=== PATIENT | male | born 1940 | race Caucasian/White ===

== ENCOUNTER 2017-11-25 20:02 | Inpatient (IN) | payer OTHER, MEDICARE ==
[~2017-11-25] VITALS: Ht 175.3 cm; Wt 102.1 kg
[2017-11-25] MEDS ORDERED: IOHEXOL 350 MG/ML 10 ML VIAL (for RAD DIAG) IVCONTRAST ONE (20:03)
[2017-11-25] MEDS ORDERED: DIPHTH/TETANUS/ACEL PERTUSSIS (BOOSTER) 0.5 ML VIAL/PFS IM ONE (20:06)
[2017-11-25] MEDS ORDERED: ceFAZolin 2 GM PREMIX 50 ML ONE (20:06)
[2017-11-25 20:25] LABS: BASOPHIL # 0.1 TH/MM3 (0-0.2); BASOPHIL % 0.4 % (0.0-2.0); EOSINOPHIL # 0.1 TH/MM3 (0-0.4); HEMATOCRIT 35.8 % (39.0-51.0); HEMOGLOBIN 11.9 GM/DL (13.0-17.0); LYMPH % 15.1 % (9.0-44.0); LYMPHOCYTE # 2.1 TH/MM3 (1.0-4.8); MEAN CELL VOLUME 83.6 FL (80.0-100.0); MEAN CORPUSCULAR HEMOGLOBIN 27.9 PG (27.0-34.0); MEAN CORPUSCULAR HGB CONC 33.3 % (32.0-36.0); MEAN PLATELET VOLUME 8.7 FL (7.0-11.0); MONO % 3.9 % (0.0-8.0); MONOCYTE # 0.5 TH/MM3 (0-0.9); NEUT % 79.6 % (16.0-70.0); PLATELET COUNT 221 TH/MM3 (150-450); RED BLOOD COUNT 4.29 MIL/MM3 (4.50-5.90); RED CELL DISTRIBUTION WIDTH 14.1 % (11.6-17.2); WHITE BLOOD COUNT 13.9 TH/MM3 (4.0-11.0)
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
[2017-11-25] MEDS ORDERED: fentaNYL CITRATE 250 MCG/5 ML AMP ONE ×2 (20:58→21:09)
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
[2017-11-25] MEDS ORDERED: ETOMIDATE 40 MG/20 ML VIAL ONE (21:06)
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
[2017-11-25 21:13] VITALS: O2SAT 100; O2SAT 96
[2017-11-25 21:13] LABS: INTERNATIONAL NORMALIZED RATIO 1.1 RATIO; PROTHROMBIN TIME - PATIENT 11.2 SEC (9.8-11.6)
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
[2017-11-25] MEDS ORDERED: PROPOFOL 1000 MG/100 ML INJ 100 ML ONE (21:21)
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
[2017-11-25 22:10] LABS: BACTERIA, URINE RARE /hpf; BILIRUBIN, URINE NEG (NEG); BLOOD, URINE MOD (NEG); GLUCOSE,URINE NEG (NEG); KETONE, URINE NEG (NEG); MUCUS URINE FEW /lpf (OCC); NITRITE,URINE NEG (NEG); SQUAMOUS EPITHELIAL CELL URINE <1 /hpf (0-5); URINE COLOR YELLOW (YELLW/STRAW); URINE LEUKOCYTE ESTERASE NEG (NEG)
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
--- NOTE | 2017-11-25 22:13 | RADRPT ---
EXAM DATE/TIME: 11/25/2017 21:40 [facility] COMPARISON: CHEST SINGLE AP, November 25, 2017, 20:03. INDICATIONS : Post endotracheal tube placement. MEDICAL HISTORY : Non-responsive SURGICAL HISTORY : Non-responsive ENCOUNTER: Subsequent ACUITY: 1 day PAIN SCORE: Non-responsive. LOCATION: Bilateral chest FINDINGS: ET tube tip well above the memo. Left subclavian catheter tip projects over the mid superior vena cava. Gastric tube tip and side-port project within the stomach. Multiple right rib fractures. Ill -defined airspace opacity in the lateral right midlung may represent pulmonary contusion. No evidenc e of pneumothorax on this supine film. CONCLUSION: Lines and tubes in good position. Ill-defined opacity upper outer right lung may represent pulmonary contusion. Kodak Mark MD on November 25, 2017 at 22:10 Board Certified Radiologist. This report was verified electronically.
[2017-11-25] MEDS ORDERED: VASOPRESSIN 20 UNITS/ML VIAL ONE (22:18)
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
[2017-11-25] MEDS ORDERED: SODIUM CHLORIDE 0.9% FLUSH 10 ML FLUSH IV FLUSH PRN (23:00)
[2017-11-25] MEDS ORDERED: ONDANSETRON HCL 4 MG/2 ML VIAL IV PUSH PRN (23:00)
[2017-11-25] MEDS ORDERED: Post-op Orders (for Pharmacy) XX ONE (23:00)
[2017-11-25] MEDS ORDERED: NALOXONE HCL 0.4 MG/ML AMP IV PUSH PRN (23:00)
[2017-11-25] MEDS ORDERED: SODIUM CHLOR 0.9% 250 ML INJ 250 ML ONE (23:05)
[2017-11-25] MEDS ORDERED: PHENYLEPHRINE HCL 10 MG/ML VIAL ONE (23:06)
--- NOTE | 2017-11-25 23:26 | PD.RAD ---
Post Procedure Progress Note Pre Procedure Diagnosis: (1) Renal hemorrhage, right (2) Trauma Post Procedure Diagnosis: (1) Renal hemorrhage, right (2) Trauma Procedure Date: Nov 25, 2017 Supervising Radiologist: Kodak Green JR Proceduralist/Assist: Cherelle Alexander, RT(R)(CV), Shantel Zimmerman, RT(R) Anesthesia: Other Plan of Activity Patient to Unit: Critical Care Patient Condition: Critical See PACS Report for procedural detail/treatment Vascular-Arterial Procedure Procedure 1 Procedure Site: Bilateral Renal Procedure(s): Angiogram, Embolization Access Access Site(s): Left Femoral Artery Findings: Selective right renal angio shows severe laceration to right kidney with active hemorrhage. The extent of the trauma to the kidney necessitated embolization of the entire kidney. No further hemorrhage seen. Selective left renal angio shows no active bleeding. No embolization performed on the left. Plan To ICU. Jr. Peter,Kodak Parks MD Nov 25, 2017 23:26
[2017-11-25] MEDS ORDERED: IODIXANOL 320 MG/ML 50 ML VIAL (for RAD SPEC) I-ARTERIAL ONE (23:28)
[2017-11-25] MEDS ORDERED: GELATIN 12 MM/7 MM FOAM I-ARTERIAL ONE (23:28)
[2017-11-26] VITALS (27 sets, daily range): BP systolic 95–138; BP diastolic 54–80; PULSE 60–104; RESP 12–22; TEMP 97–98.4; O2SAT 94–100
[2017-11-26] MEDS: SODIUM CHLOR 0.9% 1000 ML INJ 1,000 ML IV SCH ×5 (00:43→19:00)
[2017-11-26 01:01] LABS: HEMATOCRIT 31.5 % (39.0-51.0); HEMOGLOBIN 10.4 GM/DL (13.0-17.0)
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
[2017-11-26] MEDS ORDERED: CHLORHEXIDINE GLUCONATE 2 % 1 PACK (2 CLOTHS) TOP PRN (01:15)
[2017-11-26] MEDS ORDERED: GLUCAGON 1 MG/ML VIAL OTHER PRN (01:15)
[2017-11-26] MEDS ORDERED: MAGNESIUM HYDROXIDE SUSP 30 ML CUP PO PRN (01:15)
[2017-11-26] MEDS ORDERED: LACTULOSE SYRUP 20 GM/30 ML CUP PO PRN (01:15)
[2017-11-26] MEDS ORDERED: MISCELLANEOUS NURSING INFORMATION XX SCH (01:15)
[2017-11-26] MEDS ORDERED: BISACODYL 10 MG SUPP RECTAL PRN (01:15)
[2017-11-26] MEDS ORDERED: SENNOSIDES 8.6 MG TAB PO PRN (01:15)
[2017-11-26] MEDS ORDERED: DEXTROSE 50% IN WATER 50 ML VIAL(D50) IV PUSH PRN (01:15)
[2017-11-26] MEDS: CHLORHEXIDINE GLUCONATE 2 % 1 PACK (2 CLOTHS) TOP SCH (02:08)
[2017-11-26] MEDS ORDERED: fentaNYL 2,500 MCG/NS 250 ML IV PRN (03:00)
[2017-11-26] MEDS: RESP: ALBUTEROL 2.5 MG/IPRATROPIUM 0.5 MG NEB (SCH) INH ×4 (03:07→20:57)
[2017-11-26] MEDS: PANTOPRAZOLE SODIUM 40 MG VIAL IV PUSH SCH ×2 (03:22→22:25)
[2017-11-26] MEDS: PROPOFOL 1000 MG/100 ML IV PRN (03:27)
[2017-11-26] MEDS ORDERED: SODIUM CHLOR 0.9% 1000 ML INJ 1,000 ML IV ONE (04:00)
[2017-11-26] MEDS ORDERED: MIDAZOLAM 100 MG/100 ML INJ 100 ML IV PRN (04:00)
[2017-11-26 05:03] LABS: AUTOMATED NEUTROPHIL # 11.5 TH/MM3 (1.8-7.7); BASOPHIL % 0.1 % (0.0-2.0); EOSINOPHIL % 0.1 % (0.0-4.0); HEMATOCRIT 24.3 % (39.0-51.0); HEMOGLOBIN 8.2 GM/DL (13.0-17.0); LYMPH % 3.7 % (9.0-44.0); LYMPHOCYTE # 0.5 TH/MM3 (1.0-4.8); MEAN CELL VOLUME 82.9 FL (80.0-100.0); MEAN CORPUSCULAR HGB CONC 33.7 % (32.0-36.0); MEAN PLATELET VOLUME 8.4 FL (7.0-11.0); MONO % 9.1 % (0.0-8.0); MONOCYTE # 1.2 TH/MM3 (0-0.9); PLATELET COUNT 106 TH/MM3 (150-450); RED BLOOD COUNT 2.93 MIL/MM3 (4.50-5.90); WHITE BLOOD COUNT 13.3 TH/MM3 (4.0-11.0)
[2017-11-26 05:09] LABS: INTERNATIONAL NORMALIZED RATIO 1.2 RATIO; PROTHROMBIN TIME - PATIENT 12.2 SEC (9.8-11.6)
[2017-11-26 05:49] LABS: BICARBONATE 22.7 MEQ/L (21.0-32.0); CALCIUM 6.3 MG/DL (8.5-10.1); CREATININE 1.58 MG/DL (0.60-1.30)
[2017-11-26] MEDS: INSULIN NovoLIN REGULAR SUPPLEMENTAL SCALE SQ SCH ×3 (06:00→18:00)
[2017-11-26 06:04] LABS: CALCIUM-PROTEIN CORRECTED 7.8 MG/DL (8.5-10.1); TOTAL PROTEIN 4.2 GM/DL (6.4-8.2)
--- NOTE | 2017-11-26 06:31 | RADRPT ---
EXAM DATE/TIME: 11/26/2017 04:50 [facility] COMPARISON: CHEST SINGLE AP, November 25, 2017, 21:40. INDICATIONS : Shortness of breath. MEDICAL HISTORY : Unobtainable. SURGICAL HISTORY : Unobtainable. ENCOUNTER: Subsequent ACUITY: 2 days PAIN SCORE: Non-responsive. LOCATION: Bilateral chest FINDINGS: Portable AP view of the chest demonstrates a normal-sized cardiac silhouette. Endotracheal tube and n asogastric tube remain present. Left subclavian central line tip is in the SVC. There is new opacity in the right upper lung zone with elevation of the minor fissure. Hazy opacity is present in the mid and lower lung zones bilaterally. No pneumothorax is seen. CONCLUSION: 1. Partial collapse of the right upper lobe. Since the patient is intubated, mucous plug is the top c onsideration. 2. Interstitial opacities bilaterally in a pattern which could represent pulmonary edema. There are p otentially small pleural effusions bilaterally. Danny Ferreira MD on November 26, 2017 at 6:28 Board Certified Radiologist. This report was verified electronically.
[2017-11-26] MEDS: SODIUM CHLORIDE 0.9% FLUSH 10 ML FLUSH IV FLUSH SCH ×2 (09:00→22:26)
[2017-11-26] MEDS: ARTIFICIAL TEARS OPTH SOLN 15 ML BTL EACH EYE SCH ×3 (09:00→18:00)
[2017-11-26] MEDS: DOCUSATE SODIUM 50 MG/SENNA 8.6 MG TAB PO SCH ×2 (09:18→22:25)
[2017-11-26] MEDS ORDERED: ROCURONIUM INJ 50 MG/5 ML VIAL IV ONE (09:45)
[2017-11-26] MEDS ORDERED: SODIUM CHLOR 0.9% 250 ML INJ 250 ML IV ONE (09:45)
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
--- NOTE | 2017-11-26 11:39 | EKG ---
Date Performed: 11/25/2017 Time Performed: 21:00:59 PTAGE: 89 years EKG: Sinus rhythm WITH FIRST DEGREE AV BLOCK NONSPECIFIC T WAVE ABNORMALITY NO PREVIOUS TRACING DOCTOR: Edmond Harden Interpretating Date/Time 11/26/2017 11:38:42
[2017-11-26] MEDS: MIDAZOLAM HCL 2 MG/2 ML VIAL IV PUSH SCH ×2 (11:47→18:32)
--- NOTE | 2017-11-26 11:53 | RADRPT ---
EXAM DATE/TIME: 11/26/2017 11:29 [facility] COMPARISON: CHEST SINGLE AP, November 26, 2017, 4:50. INDICATIONS : Post bronchoscopy MEDICAL HISTORY : unobtainable SURGICAL HISTORY : unobtainable ENCOUNTER: Initial ACUITY: 1 day PAIN SCORE: Non-responsive. LOCATION: Bilateral chest FINDINGS: A single portable frontal view the chest shows an endotracheal tube with the tip approximately 9 cm c ephalad to the memo. Nasogastric tube with the tip in the fundus of the stomach. Left subclavian ce ntral line. Bilateral pleural effusions with bibasilar consolidations as well as consolidation involv ing the right upper lobe. Hypoinflation bilaterally. Top normal heart size. No pneumothorax. CONCLUSION: No interval change with bilateral pleural effusions and bilateral pulmonary consolidations as well as volume loss. Kodak Green Jr., MD on November 26, 2017 at 11:50 Board Certified Radiologist. This report was verified electronically.
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
--- NOTE | 2017-11-26 15:27 | ECHRPT ---
Indication: SEVERE BLUNT TRAUMA CONCLUSIONS Normal left ventricular size. Wall thickness is normal. The left ventricular systolic function is probably normal. There was limited left ventricular wall m otion assessment due to poor endocardial visualization. The pulmonary valve is not well visualized. BP: 103 / 62 HR: 92 Rhythm: MEASUREMENTS (Male / Female) Normal Values Technical Quality:Good 2D ECHO LV Diastolic Diameter PLAX 4.6 cm 4.2 - 5.9 / 3.9 - 5.3 cm LV Systolic Diameter PLAX 3.9 cm IVS Diastolic Thickness 1.1 cm 0.6 - 1.0 / 0.6 - 0.9 cm LVPW Diastolic Thickness 0.7 cm 0.6 - 1.0 / 0.6 - 0.9 cm LV Relative Wall Thickness 0.4 DOPPLER Mitral E Point Velocity 37.0 cm/s Mitral A Point Velocity 74.0 cm/s Mitral E to A Ratio 0.5 TR Peak Velocity 289.0 cm/s TR Peak Gradient 33.4 mmHg FINDINGS LEFT VENTRICLE Normal left ventricular size. Wall thickness is normal. The left ventricular systolic function is probably normal. There was limited left ventricular wall m otion assessment due to poor endocardial visualization. RIGHT VENTRICLE Normal right ventricular size and systolic function. LEFT ATRIUM The left atrial size is normal. RIGHT ATRIUM The right atrial size is normal. ATRIAL SEPTUM Normal atrial septal thickness without atrial level shunting by limited color doppler interrogation. AORTA The aortic root and proximal ascending aorta are normal in size on limited imaging. MITRAL VALVE Structurally normal mitral valve. No mitral valve stenosis or regurgitation. AORTIC VALVE Trileaflet aortic valve. No aortic valve stenosis or regurgitation. TRICUSPID VALVE Structurally normal tricuspid valve. No tricuspid valve stenosis or regurgitation. PULMONARY VALVE The pulmonary valve is not well visualized. VESSELS The inferior vena cava is normal in size. PERICARDIUM No pericardial effusion. Raffi Rdz MD (Electronically Signed) Final Date:26 November 2017 15:26
[2017-11-26] MEDS: FREE WATER G-TUBE SCH ×2 (15:52→20:00)
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
--- NOTE | 2017-11-26 17:34 | RADRPT ---
EXAM DATE/TIME: 11/26/2017 16:39 [facility] COMPARISON: CHEST SINGLE AP, November 26, 2017, 11:29. INDICATIONS : Short of breath. Post bronchoscopy. MEDICAL HISTORY : None. SURGICAL HISTORY : None. ENCOUNTER: Subsequent ACUITY: 1 day PAIN SCORE: Non-responsive. LOCATION: Bilateral chest FINDINGS: There is improvement with better aeration of the right upper lobe. There is subcutaneous emphysema p resent suggesting the pneumothorax. Minimal parenchymal changes left base. ET tube in good position .. Nasogastric tube across the GE junction. CONCLUSION: Subcutaneous emphysema suggesting pneumothorax, difficult to appreciate on this parti ally erect film. Better aeration of the right upper lobe. Jarod Gbibons MD FACR on November 26, 2017 at 17:29 Board Certified Radiologist. This report was verified electronically.
[2017-11-26 17:35] LABS: HEMATOCRIT 34.3 % (39.0-51.0); HEMOGLOBIN 11.9 GM/DL (13.0-17.0)
[2017-11-26] MEDS ORDERED: ROCURONIUM INJ 50 MG/5 ML VIAL ONE (18:06)
--- NOTE | 2017-11-26 18:41 | RADRPT ---
EXAM DATE/TIME: 11/26/2017 18:20 [facility] COMPARISON: CHEST SINGLE AP, November 26, 2017, 16:39. INDICATIONS : Status post chest tube placement. MEDICAL HISTORY : Unobtainable. SURGICAL HISTORY : Unobtainable. ENCOUNTER: Subsequent ACUITY: 1 day PAIN SCORE: Non-responsive. LOCATION: chest FINDINGS: ET tube, NG tube, left subclavian catheter stable in position. Interval placement of right chest miguel inage tube with the tip projecting in the medial lower chest. Stable subcutaneous emphysema about th e lateral right chest wall. Ill-defined linear area of opacity emanating from the right hilar region similar to prior examination. No right lung infiltrates seen. There is hazy opacity in left mid an d lower lung with loss of delineation left hemidiaphragm, stable from prior. The left lateral costop hrenic angle is not included in the [id number]. Right rib fractures. CONCLUSION: Stable right subcutaneous emphysema. No definite pneumothorax seen on this supine radiograph. Persi stent left lower lung consolidation. Kodak Mark MD on November 26, 2017 at 18:37 Board Certified Radiologist. This report was verified electronically.
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
[2017-11-26] MEDS ORDERED: SODIUM CHLOR 0.9% 1000 ML INJ 1,000 ML IV SCH (19:30)
[2017-11-26] MEDS: REMOVE OLD LIDOCAINE PATCH T-DERMAL SCH (21:00)
[2017-11-27] VITALS (20 sets, daily range): BP systolic 115–150; BP diastolic 50–82; PULSE 63–142; RESP 11–29; TEMP 98.2–98.8; O2SAT 91–100
[2017-11-27] MEDS: RESP: ALBUTEROL 2.5 MG/IPRATROPIUM 0.5 MG NEB (SCH) INH ×5 (02:36→22:37)
[2017-11-27] MEDS: CHLORHEXIDINE GLUCONATE 2 % 1 PACK (2 CLOTHS) TOP SCH (04:00)
[2017-11-27] MEDS: FREE WATER G-TUBE SCH ×7 (04:00→23:32)
[2017-11-27 05:03] LABS: AUTOMATED NEUTROPHIL # 7.4 TH/MM3 (1.8-7.7); BASOPHIL % 0.2 % (0.0-2.0); EOSINOPHIL % 0.3 % (0.0-4.0); HEMOGLOBIN 10.9 GM/DL (13.0-17.0); LYMPH % 10.5 % (9.0-44.0); MEAN CELL VOLUME 82.5 FL (80.0-100.0); MEAN CORPUSCULAR HEMOGLOBIN 29.1 PG (27.0-34.0); MEAN CORPUSCULAR HGB CONC 35.3 % (32.0-36.0); MEAN PLATELET VOLUME 8.9 FL (7.0-11.0); MONO % 10.3 % (0.0-8.0); NEUT % 78.7 % (16.0-70.0); PLATELET COUNT 81 TH/MM3 (150-450); RED BLOOD COUNT 3.76 MIL/MM3 (4.50-5.90); RED CELL DISTRIBUTION WIDTH 16.6 % (11.6-17.2); WHITE BLOOD COUNT 9.4 TH/MM3 (4.0-11.0)
[2017-11-27] MEDS: SODIUM CHLOR 0.9% 1000 ML INJ 1,000 ML IV SCH ×2 (05:05→23:21)
[2017-11-27 05:32] LABS: BICARBONATE 22.1 MEQ/L (21.0-32.0); CALCIUM 6.7 MG/DL (8.5-10.1); CREATININE 1.84 MG/DL (0.60-1.30); MAGNESIUM 1.5 MG/DL (1.5-2.5); PHOSPHORUS 3.8 MG/DL (2.5-4.9)
[2017-11-27 05:45] LABS: CALCIUM-PROTEIN CORRECTED 7.8 MG/DL (8.5-10.1); TOTAL PROTEIN 4.9 GM/DL (6.4-8.2)
[2017-11-27] MEDS: INSULIN NovoLIN REGULAR SUPPLEMENTAL SCALE SQ SCH ×5 (06:00→23:33)
[2017-11-27] MEDS ORDERED: POTASSIUM PHOSPHATE INJ 30 MMOL in SODIUM CHLOR 0.9% 250 ML INJ 250 ML IV PRN (06:15)
[2017-11-27] MEDS ORDERED: POTASSIUM CHLOR 20 MEQ PREMIX 100 ML IV PRN ×2 (06:15)
[2017-11-27] MEDS ORDERED: MAGNESIUM SULFATE INJ 2 GM in SODIUM CHLORIDE 0.9% INJ 96 ML IV PRN (06:15)
[2017-11-27] MEDS ORDERED: POTASSIUM PHOSPHATE MONOBASIC 500 MG TAB PO PRN (06:15)
[2017-11-27] MEDS ORDERED: POTASSIUM CHLOR 40 MEQ PREMIX 100 ML IV PRN ×2 (06:15)
[2017-11-27] MEDS ORDERED: MAGNESIUM OXIDE 400 MG TAB PO PRN (06:15)
[2017-11-27] MEDS ORDERED: MAGNESIUM SULFATE INJ 4 GM in SODIUM CHLORIDE 0.9% INJ 92 ML IV PRN (06:15)
[2017-11-27] MEDS ORDERED: POTASSIUM CHLORIDE 25 MEQ EFFERVESCENT TAB PO PRN (06:15)
[2017-11-27] MEDS ORDERED: SODIUM PHOSPHATE INJ 30 MMOL in SODIUM CHLOR 0.9% 250 ML INJ 240 ML IV PRN (06:15)
[2017-11-27] MEDS ORDERED: POTASSIUM PHOSPHATE MONOBASIC 500 MG TAB PO/TUBE PRN (06:15)
--- NOTE | 2017-11-27 06:31 | RADRPT ---
EXAM DATE/TIME: 11/27/2017 05:25 [facility] COMPARISON: CHEST SINGLE AP, November 26, 2017, 18:20. INDICATIONS : Respiratory failure. MEDICAL HISTORY : Unobtainable. SURGICAL HISTORY : Unobtainable. ENCOUNTER: Subsequent ACUITY: 3 days PAIN SCORE: Non-responsive. LOCATION: Bilateral chest FINDINGS: Portable AP view of the chest demonstrates a normal-sized cardiac silhouette. Nasogastric tube is loo ped in the stomach. Endotracheal tube distal tip is above the clavicular head level and left subclavi an central line remains present. There is a chest tube at the inferior right hemithorax. No pneumotho rax is identified. There is mild bibasilar opacity with blunting of the left costophrenic sulcus. Rig ht chest wall soft tissue air is present. There are likely right rib fractures. CONCLUSION: 1. Right chest tube remains present and no pneumothorax is seen. Right rib fractures remain visualize d. 2. Stable mild bibasilar opacities may represent atelectasis or consolidation. There is likely a smal l left pleural effusion. Danny Ferreira MD on November 27, 2017 at 6:28 Board Certified Radiologist. This report was verified electronically.
[2017-11-27] MEDS: PROPOFOL 1000 MG/100 ML IV PRN (08:46)
[2017-11-27] MEDS: ARTIFICIAL TEARS OPTH SOLN 15 ML BTL EACH EYE SCH ×3 (08:46→18:00)
[2017-11-27] MEDS: DOCUSATE SODIUM 50 MG/SENNA 8.6 MG TAB PO SCH ×2 (08:46→21:00)
[2017-11-27] MEDS: SODIUM CHLORIDE 0.9% FLUSH 10 ML FLUSH IV FLUSH SCH ×2 (08:47→23:32)
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
[2017-11-27] MEDS ORDERED: LABETALOL HCL 100 MG/20 ML VIAL IV PUSH PRN (13:45)
[2017-11-27] MEDS ORDERED: ENALAPRILAT 1.25 MG/ML VIAL IV PUSH PRN (13:45)
[2017-11-27] MEDS: METHOCARBAMOL 500 MG TAB PO SCH ×2 (15:31→22:00)
[2017-11-27] MEDS: LIDOCAINE HCL 5% PATCH T-DERMAL SCH (15:31)
[2017-11-27] MEDS: hydrALAZINE HCL 20 MG/ML VIAL IV PUSH PRN (15:32)
[2017-11-27] MEDS: MORPHINE SULFATE 4 MG/ML INJ IV PUSH PRN (15:50)
[2017-11-27] MEDS ORDERED: AMIODARONE INJ 150 MG in DEXTROSE 5% IN WATER 100ML INJ 100 ML IV ONE ×2 (16:11)
[2017-11-27] MEDS: MAGNESIUM SULFATE 1 GM PREMIX 100 ML IV SCH ×2 (16:15→17:15)
[2017-11-27] MEDS ORDERED: ADENOSINE IV SOLN 3 MG/ML 2 ML VIAL ONE (16:20)
[2017-11-27] MEDS ORDERED: AMIODARONE INJ 450 MG in DEXTROSE 5% IN WATE(EXCEL) INJ 241 ML IV PRN ×2 (16:21)
[2017-11-27] MEDS ORDERED: DILTIAZEM HCL 25 MG/5 ML VIAL ONE (16:30)
[2017-11-27] MEDS ORDERED: PHENYLEPHRINE HCL 10 MG/ML VIAL ONE (16:32)
[2017-11-27] MEDS: AMIODARONE INJ 450 MG in SODIUM CHLOR 0.9% (EXCEL) INJ 241 ML IV PRN ×2 (16:50→23:32)
[2017-11-27] MEDS ORDERED: PHENYLEPHRINE 40 MG in D5W 500 ML IV PRN (20:00)
[2017-11-27] MEDS ORDERED: TERBUTALINE INJ 1 MG/ML AMP SQ PRN (20:00)
[2017-11-27] MEDS: PANTOPRAZOLE SODIUM 40 MG VIAL IV PUSH SCH (23:04)
[2017-11-28] VITALS (19 sets, daily range): BP systolic 133–178; BP diastolic 51–79; PULSE 67–134; RESP 18–58; TEMP 97.9–98.6; O2SAT 93–98
[2017-11-28] MEDS: MORPHINE SULFATE 4 MG/ML INJ IV PUSH PRN ×3 (02:39→14:21)
[2017-11-28] MEDS: CHLORHEXIDINE GLUCONATE 2 % 1 PACK (2 CLOTHS) TOP SCH (02:55)
[2017-11-28] MEDS: FREE WATER G-TUBE SCH ×6 (02:55→23:57)
[2017-11-28] MEDS: RESP: ALBUTEROL 2.5 MG/IPRATROPIUM 0.5 MG NEB (SCH) INH ×4 (03:57→21:35)
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
[2017-11-28 05:07] LABS: AUTOMATED NEUTROPHIL # 9.5 TH/MM3 (1.8-7.7); BASOPHIL % 0.1 % (0.0-2.0); HEMOGLOBIN 10.5 GM/DL (13.0-17.0); LYMPH % 3.6 % (9.0-44.0); LYMPHOCYTE # 0.4 TH/MM3 (1.0-4.8); MEAN CELL VOLUME 83.3 FL (80.0-100.0); MEAN CORPUSCULAR HGB CONC 34.8 % (32.0-36.0); MEAN PLATELET VOLUME 9.2 FL (7.0-11.0); MONO % 7.5 % (0.0-8.0); MONOCYTE # 0.8 TH/MM3 (0-0.9); NEUT % 88.8 % (16.0-70.0); PLATELET COUNT 82 TH/MM3 (150-450); RED BLOOD COUNT 3.61 MIL/MM3 (4.50-5.90); RED CELL DISTRIBUTION WIDTH 16.7 % (11.6-17.2); WHITE BLOOD COUNT 10.7 TH/MM3 (4.0-11.0)
[2017-11-28 05:24] LABS: ALBUMIN 2.4 GM/DL (3.4-5.0); BICARBONATE 23.8 MEQ/L (21.0-32.0); CALCIUM 7.3 MG/DL (8.5-10.1); CALCIUM-PROTEIN CORRECTED 8.2 MG/DL (8.5-10.1); CREATININE 1.73 MG/DL (0.60-1.30); TOTAL BILIRUBIN ADULT 0.6 MG/DL (0.2-1.0); TOTAL PROTEIN 5.5 GM/DL (6.4-8.2)
[2017-11-28] MEDS: INSULIN NovoLIN REGULAR SUPPLEMENTAL SCALE SQ SCH ×4 (06:00→23:58)
[2017-11-28] MEDS: METHOCARBAMOL 500 MG TAB PO SCH ×3 (06:00→20:04)
[2017-11-28] MEDS: LIDOCAINE HCL 5% PATCH T-DERMAL SCH (08:13)
[2017-11-28] MEDS: ARTIFICIAL TEARS OPTH SOLN 15 ML BTL EACH EYE SCH ×3 (08:14→17:46)
[2017-11-28] MEDS: DOCUSATE SODIUM 50 MG/SENNA 8.6 MG TAB PO SCH ×2 (08:14→20:04)
[2017-11-28] MEDS: SODIUM CHLORIDE 0.9% FLUSH 10 ML FLUSH IV FLUSH SCH ×2 (08:14→20:04)
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
[2017-11-28] MEDS: hydrALAZINE HCL 20 MG/ML VIAL IV PUSH PRN ×3 (10:20→23:13)
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
--- NOTE | 2017-11-28 14:32 | ECHRPT ---
Indication: A FIB FLUTTER CONCLUSIONS Technically difficult study. The left ventricular systolic function is normal with an estimated ejection fraction in the range of 55-60%. Doppler parameters are consistent with impaired left ventricular relaxtion (grade 1 diastolic dysfun ction). Xexje-[id number] mitral valve regurgitation. There is mild tricuspid valve regurgitation. BP: / HR: Rhythm: MEASUREMENTS (Male / Female) Normal Values Technical Quality:Technically difficult study 2D ECHO LV Diastolic Diameter PLAX 4.7 cm 4.2 - 5.9 / 3.9 - 5.3 cm LV Systolic Diameter PLAX 3.7 cm IVS Diastolic Thickness 0.9 cm 0.6 - 1.0 / 0.6 - 0.9 cm LVPW Diastolic Thickness 0.6 cm 0.6 - 1.0 / 0.6 - 0.9 cm LV Relative Wall Thickness 0.3 RV Internal Dim ED PLAX 2.8 cm LA Systolic Diameter LX 3.9 cm 3.0 - 4.0 / 2.7 - 3.8 cm DOPPLER Mitral E Point Velocity 67.1 cm/s Mitral A Point Velocity 88.8 cm/s Mitral E to A Ratio 0.8 TR Peak Velocity 360.0 cm/s TR Peak Gradient 51.8 mmHg FINDINGS LEFT VENTRICLE Normal left ventricular size. Wall thickness is normal. The left ventricular systolic function is normal with an estimated ejection fraction in the range of 55-60%. Doppler parameters are consistent with impaired left ventricular relaxtion (grade 1 diastolic dysfun ction). RIGHT VENTRICLE Grossly normal LEFT ATRIUM The left atrium was not well visualized. RIGHT ATRIUM The right atrium is not well visualized. ATRIAL SEPTUM Normal atrial septal thickness AORTA The aortic root and proximal ascending aorta are not well visualized. MITRAL VALVE Grossly normal [id number] mitral valve regurgitation. No mitral valve stenosis. AORTIC VALVE The aortic valve is not well visualized. No aortic valve regurgitation. No aortic valve stenosis. TRICUSPID VALVE Grossly normal There is mild tricuspid valve regurgitation. There is estimated moderate pulmonary hypertension present (57 mmHg). PULMONARY VALVE The pulmonary valve is not well visualized. VESSELS The inferior vena cava was not well visualized. PERICARDIUM . Michael Harris DO (Electronically Signed) Final Date:28 November 2017 14:31
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
[2017-11-28] MEDS: oxyCODONE/ACETAMINOPHEN 10 MG/325 MG TAB PO PRN ×2 (16:14→23:14)
[2017-11-28] MEDS: ONDANSETRON HCL 4 MG/2 ML VIAL IV PUSH PRN (17:05)
[2017-11-28] MEDS ORDERED: DILTIAZEM-CD 180 MG CAP ER PO SCH (17:15)
[2017-11-28] MEDS: PANTOPRAZOLE SODIUM 40 MG VIAL IV PUSH SCH (21:26)
[2017-11-28] MEDS: REMOVE OLD LIDOCAINE PATCH T-DERMAL SCH (21:48)
[2017-11-28] MEDS: SODIUM CHLOR 0.9% 1000 ML INJ 1,000 ML IV SCH (23:21)
[2017-11-29] VITALS (13 sets, daily range): BP systolic 99–154; BP diastolic 53–74; PULSE 64–154; RESP 18–28; TEMP 97.8–99.9; O2SAT 90–94
[2017-11-29] MEDS: FREE WATER G-TUBE SCH (02:55)
[2017-11-29] MEDS: CHLORHEXIDINE GLUCONATE 2 % 1 PACK (2 CLOTHS) TOP SCH (02:55)
[2017-11-29] MEDS: RESP: ALBUTEROL 2.5 MG/IPRATROPIUM 0.5 MG NEB (SCH) INH ×4 (03:02→20:43)
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
[2017-11-29 05:24] LABS: AUTOMATED NEUTROPHIL # 10.7 TH/MM3 (1.8-7.7); BASOPHIL % 0.2 % (0.0-2.0); HEMATOCRIT 28.7 % (39.0-51.0); HEMOGLOBIN 9.8 GM/DL (13.0-17.0); LYMPH % 3.8 % (9.0-44.0); LYMPHOCYTE # 0.5 TH/MM3 (1.0-4.8); MEAN CELL VOLUME 84.3 FL (80.0-100.0); MEAN CORPUSCULAR HEMOGLOBIN 28.7 PG (27.0-34.0); MEAN PLATELET VOLUME 8.9 FL (7.0-11.0); MONO % 6.2 % (0.0-8.0); MONOCYTE # 0.7 TH/MM3 (0-0.9); NEUT % 89.8 % (16.0-70.0); PLATELET COUNT 97 TH/MM3 (150-450); RED CELL DISTRIBUTION WIDTH 17.1 % (11.6-17.2)
[2017-11-29] MEDS: METHOCARBAMOL 500 MG TAB PO SCH ×3 (05:33→21:46)
[2017-11-29 05:53] LABS: ALBUMIN 2.3 GM/DL (3.4-5.0); ALT (GPT) 55 U/L (12-78); AST (GOT) 39 U/L (15-37); BICARBONATE 23.6 MEQ/L (21.0-32.0); BLOOD UREA NITROGEN 39 MG/DL (7-18); CALCIUM 7.5 MG/DL (8.5-10.1); CHLORIDE 116 MEQ/L (98-107); CREATININE 1.87 MG/DL (0.60-1.30); GLOMERULAR FILTRATION RATE 35 ML/MIN (>89); GLUCOSE,RANDOM 124 MG/DL (74-106); SODIUM (NA) 147 MEQ/L (136-145)
[2017-11-29 05:55] LABS: ALKALINE PHOSPHATASE 56 U/L (45-117); TOTAL BILIRUBIN ADULT 0.7 MG/DL (0.2-1.0); TOTAL PROTEIN 5.6 GM/DL (6.4-8.2)
[2017-11-29] MEDS ORDERED: AMIODARONE INJ 150 MG in DEXTROSE 5% IN WATER 100ML INJ 100 ML IV ONE ×2 (05:56)
[2017-11-29] MEDS: INSULIN NovoLIN REGULAR SUPPLEMENTAL SCALE SQ SCH ×4 (06:00→23:38)
[2017-11-29] MEDS ORDERED: AMIODARONE INJ 450 MG in DEXTROSE 5% IN WATE(EXCEL) INJ 241 ML IV PRN ×2 (06:06)
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
[2017-11-29] MEDS: POTASSIUM CHLOR 20 MEQ PREMIX 100 ML IV SCH ×2 (06:17→08:00)
[2017-11-29] MEDS: MAGNESIUM SULFATE 1 GM PREMIX 100 ML IV SCH ×2 (06:18→07:00)
[2017-11-29] MEDS: AMIODARONE INJ 450 MG in SODIUM CHLOR 0.9% (EXCEL) INJ 241 ML IV PRN ×2 (06:39→23:37)
[2017-11-29] MEDS ORDERED: PHENYLEPHRINE HCL 10 MG/ML VIAL ONE (06:47)
[2017-11-29] MEDS: SODIUM CHLORIDE 0.9% FLUSH 10 ML FLUSH IV FLUSH SCH ×2 (09:00→21:47)
[2017-11-29] MEDS: ARTIFICIAL TEARS OPTH SOLN 15 ML BTL EACH EYE SCH ×3 (09:00→18:00)
[2017-11-29] MEDS: MORPHINE SULFATE 4 MG/ML INJ IV PUSH PRN (09:29)
[2017-11-29 09:54] LABS: MAGNESIUM 2.8 MG/DL (1.5-2.5)
[2017-11-29] MEDS: DILTIAZEM-CD 180 MG CAP ER PO SCH (10:04)
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
[2017-11-29] MEDS: DOCUSATE SODIUM 50 MG/SENNA 8.6 MG TAB PO SCH ×2 (10:17→21:46)
[2017-11-29] MEDS: LACTULOSE SYRUP 20 GM/30 ML CUP PO SCH (10:17)
[2017-11-29] MEDS: LIDOCAINE HCL 5% PATCH T-DERMAL SCH (10:17)
[2017-11-29] MEDS: MAGNESIUM HYDROXIDE SUSP 30 ML CUP PO SCH ×2 (13:15→23:37)
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
[2017-11-29] MEDS: PANTOPRAZOLE SODIUM 40 MG VIAL IV PUSH SCH (21:46)
[2017-11-29] MEDS: oxyCODONE/ACETAMINOPHEN 10 MG/325 MG TAB PO PRN (23:37)
[2017-11-29] MEDS: REMOVE OLD LIDOCAINE PATCH T-DERMAL SCH (23:38)
[2017-11-29] MEDS: SODIUM CHLOR 0.9% 1000 ML INJ 1,000 ML IV SCH (23:38)
--- NOTE | 2017-11-29 23:40 | EKG ---
Date Performed: 11/29/2017 Time Performed: 10:27:02 PTAGE: 77 years EKG: ATRIAL FIBRILLATION WITH RAPID VENTRICULAR RESPONSE INTRAVENTRICULAR CONDUCTION DELAY ABNOR MAL ECG PREVIOUS TRACING : 11/25/2017 21.00 Compared to prior tracing, now in AFib with RVR DOCTOR: Michael Harris Interpretating Date/Time 11/29/2017 23:39:29
[2017-11-30] VITALS (14 sets, daily range): BP systolic 130–169; BP diastolic 60–79; PULSE 62–72; RESP 23–35; TEMP 97–97.9; O2SAT 90–94
[2017-11-30] MEDS: RESP: ALBUTEROL 2.5 MG/IPRATROPIUM 0.5 MG NEB (SCH) INH (03:28)
[2017-11-30] MEDS: CHLORHEXIDINE GLUCONATE 2 % 1 PACK (2 CLOTHS) TOP SCH (04:00)
[2017-11-30] MEDS: METHOCARBAMOL 500 MG TAB PO SCH ×3 (04:57→21:14)
[2017-11-30 05:29] LABS: AUTOMATED NEUTROPHIL # 10.1 TH/MM3 (1.8-7.7); BASOPHIL % 0.1 % (0.0-2.0); EOSINOPHIL % 0.1 % (0.0-4.0); HEMATOCRIT 29.7 % (39.0-51.0); LYMPH % 4.9 % (9.0-44.0); LYMPHOCYTE # 0.6 TH/MM3 (1.0-4.8); MEAN CELL VOLUME 85.2 FL (80.0-100.0); MEAN CORPUSCULAR HEMOGLOBIN 28.7 PG (27.0-34.0); MEAN CORPUSCULAR HGB CONC 33.6 % (32.0-36.0); MEAN PLATELET VOLUME 8.7 FL (7.0-11.0); MONOCYTE # 0.9 TH/MM3 (0-0.9); NEUT % 86.9 % (16.0-70.0); PLATELET COUNT 110 TH/MM3 (150-450); RED BLOOD COUNT 3.49 MIL/MM3 (4.50-5.90); RED CELL DISTRIBUTION WIDTH 17.5 % (11.6-17.2); WHITE BLOOD COUNT 11.6 TH/MM3 (4.0-11.0)
[2017-11-30 05:56] LABS: ALBUMIN 2.4 GM/DL (3.4-5.0); ALT (GPT) 45 U/L (12-78); AST (GOT) 29 U/L (15-37); BICARBONATE 23.2 MEQ/L (21.0-32.0); BLOOD UREA NITROGEN 49 MG/DL (7-18); CALCIUM 7.6 MG/DL (8.5-10.1); CHLORIDE 116 MEQ/L (98-107); CREATININE 1.84 MG/DL (0.60-1.30); GLOMERULAR FILTRATION RATE 36 ML/MIN (>89); GLUCOSE,RANDOM 109 MG/DL (74-106); SODIUM (NA) 146 MEQ/L (136-145)
[2017-11-30 05:58] LABS: ALKALINE PHOSPHATASE 57 U/L (45-117); TOTAL BILIRUBIN ADULT 0.9 MG/DL (0.2-1.0); TOTAL PROTEIN 5.7 GM/DL (6.4-8.2)
[2017-11-30] MEDS: INSULIN NovoLIN REGULAR SUPPLEMENTAL SCALE SQ SCH ×3 (06:00→18:00)
--- NOTE | 2017-11-30 06:24 | RADRPT ---
EXAM DATE/TIME: 11/30/2017 04:52 [facility] COMPARISON: CHEST SINGLE AP, November 29, 2017, 2:46. INDICATIONS : Respiratory failure. Evaluate lung status after trauma. MEDICAL HISTORY : None. SURGICAL HISTORY : None. ENCOUNTER: Subsequent ACUITY: 1 week PAIN SCORE: Non-responsive. LOCATION: Bilateral chest FINDINGS: Right greater than left patchy parenchymal consolidation again noted and not significantly changed. A small left pleural effusion is likely. No large effusion seen. No pneumothorax. Right chest tube remains in place. Multiple right rib fractures are again noted. CONCLUSION: Right rib fractures with a chest tube. No pneumothorax. Patchy bibasilar parenchymal consolidation no t significantly changed. Danny Esquivel MD on November 30, 2017 at 6:22 Board Certified Radiologist. This report was verified electronically.
[2017-11-30] MEDS: LACTULOSE SYRUP 20 GM/30 ML CUP PO SCH (07:51)
[2017-11-30] MEDS: DOCUSATE SODIUM 50 MG/SENNA 8.6 MG TAB PO SCH ×2 (07:52→21:14)
[2017-11-30] MEDS: DILTIAZEM-CD 180 MG CAP ER PO SCH (07:52)
[2017-11-30] MEDS: LIDOCAINE HCL 5% PATCH T-DERMAL SCH (07:52)
[2017-11-30] MEDS ORDERED: BISACODYL 10 MG SUPP RECTAL ONE (08:00)
[2017-11-30] MEDS ORDERED: BISACODYL EC 5 MG TABEC PO ONE (08:00)
[2017-11-30] MEDS: ARTIFICIAL TEARS OPTH SOLN 15 ML BTL EACH EYE SCH ×3 (09:00→18:00)
[2017-11-30] MEDS: SODIUM CHLORIDE 0.9% FLUSH 10 ML FLUSH IV FLUSH SCH ×2 (09:00→20:57)
[2017-11-30] MEDS: ATENOLOL 25 MG TAB PO SCH ×2 (10:30→21:00)
[2017-11-30] MEDS: oxyCODONE/ACETAMINOPHEN 10 MG/325 MG TAB PO PRN (10:43)
[2017-11-30] MEDS ORDERED: PILL SPLITTER OTHER PRN (11:30)
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
[2017-11-30] MEDS: FUROSEMIDE 40 MG/4 ML VIAL IV PUSH SCH (11:45)
[2017-11-30 12:26] LABS: CREATININE, RANDOM URINE 105.2 MG/DL
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
[2017-11-30] MEDS: MAGNESIUM HYDROXIDE SUSP 30 ML CUP PO SCH (14:25)
[2017-11-30] MEDS: hydrALAZINE HCL 20 MG/ML VIAL IV PUSH PRN (14:43)
[2017-11-30] MEDS: AMIODARONE INJ 450 MG in SODIUM CHLOR 0.9% (EXCEL) INJ 241 ML IV PRN (18:14)
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
[2017-11-30] MEDS: SODIUM CHLOR 0.9% 1000 ML INJ 1,000 ML IV SCH (19:42)
[2017-11-30] MEDS ORDERED: BISACODYL 10 MG SUPP RECTAL SCH (20:30)
[2017-11-30] MEDS: REMOVE OLD LIDOCAINE PATCH T-DERMAL SCH (21:00)
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
[2017-11-30] MEDS: PANTOPRAZOLE SODIUM 40 MG VIAL IV PUSH SCH (23:38)
[2017-12-01] VITALS (16 sets, daily range): BP systolic 86–152; BP diastolic 47–72; PULSE 40–116; RESP 17–33; TEMP 97.7–98.7; O2SAT 90–96
[2017-12-01] MEDS: MAGNESIUM HYDROXIDE SUSP 30 ML CUP PO SCH ×2 (00:48→13:15)
[2017-12-01] MEDS: CHLORHEXIDINE GLUCONATE 2 % 1 PACK (2 CLOTHS) TOP SCH (04:00)
[2017-12-01 04:37] LABS: AUTOMATED NEUTROPHIL # 8.3 TH/MM3 (1.8-7.7); EOSINOPHIL % 0.3 % (0.0-4.0); LYMPH % 4.9 % (9.0-44.0); LYMPHOCYTE # 0.5 TH/MM3 (1.0-4.8); MEAN CELL VOLUME 85.6 FL (80.0-100.0); MEAN CORPUSCULAR HEMOGLOBIN 29.5 PG (27.0-34.0); MEAN CORPUSCULAR HGB CONC 34.4 % (32.0-36.0); MEAN PLATELET VOLUME 8.4 FL (7.0-11.0); MONO % 9.5 % (0.0-8.0); MONOCYTE # 0.9 TH/MM3 (0-0.9); NEUT % 85.3 % (16.0-70.0); PLATELET COUNT 120 TH/MM3 (150-450); RED BLOOD COUNT 3.38 MIL/MM3 (4.50-5.90); RED CELL DISTRIBUTION WIDTH 16.7 % (11.6-17.2); WHITE BLOOD COUNT 9.7 TH/MM3 (4.0-11.0)
[2017-12-01 04:51] LABS: ALBUMIN 2.3 GM/DL (3.4-5.0); BICARBONATE 23.3 MEQ/L (21.0-32.0); CALCIUM 7.1 MG/DL (8.5-10.1); CALCIUM-PROTEIN CORRECTED 8.1 MG/DL (8.5-10.1); CREATININE 1.98 MG/DL (0.60-1.30); MAGNESIUM 2.5 MG/DL (1.5-2.5); TOTAL PROTEIN 5.2 GM/DL (6.4-8.2)
[2017-12-01] MEDS: INSULIN NovoLIN REGULAR SUPPLEMENTAL SCALE SQ SCH ×2 (05:10)
[2017-12-01] MEDS: METHOCARBAMOL 500 MG TAB PO SCH ×3 (05:40→22:00)
[2017-12-01] MEDS ORDERED: DILTIAZEM HCL 25 MG/5 ML VIAL IV PUSH ONE (07:15)
[2017-12-01] MEDS ORDERED: DILTIAZEM INJ 125 MG in SODIUM CHLORIDE 0.9% INJ 100 ML IV PRN (08:00)
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
[2017-12-01 08:35] LABS: BANDS 5 % (0-6); CORRECTED NUCLEATED RBC 1 /100 WBC (0-0); LYMPHOCYTES 4 % (9-44); MONOCYTES 9 % (0-8); MYELOCYTES 2 % (0-0); NEUTROPHIL # MANUAL DIFF 8.4 TH/MM3 (1.8-7.7); NUCLEATED RED BLOOD CELL 1 (0-0); POLYS (SEG NEUTROPHILS) 80 % (16-70)
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
[2017-12-01] MEDS: ARTIFICIAL TEARS OPTH SOLN 15 ML BTL EACH EYE SCH ×3 (09:00→18:00)
[2017-12-01] MEDS: LACTULOSE SYRUP 20 GM/30 ML CUP PO SCH (09:00)
[2017-12-01] MEDS: DOCUSATE SODIUM 50 MG/SENNA 8.6 MG TAB PO SCH ×2 (09:00→21:00)
[2017-12-01] MEDS: ATENOLOL 25 MG TAB PO SCH (09:00)
[2017-12-01] MEDS: SODIUM CHLORIDE 0.9% FLUSH 10 ML FLUSH IV FLUSH SCH ×2 (09:00→21:00)
[2017-12-01] MEDS: DILTIAZEM-CD 180 MG CAP ER PO SCH (09:27)
[2017-12-01] MEDS: FUROSEMIDE 40 MG/4 ML VIAL IV PUSH SCH (09:27)
[2017-12-01] MEDS: LIDOCAINE HCL 5% PATCH T-DERMAL SCH (09:27)
[2017-12-01] MEDS ORDERED: ENOXAPARIN SODIUM 40 MG/0.4 ML SYRINGE SQ SCH (11:00)
[2017-12-01] MEDS: oxyCODONE/ACETAMINOPHEN 10 MG/325 MG TAB PO PRN (11:49)
[2017-12-01] MEDS: SODIUM CHLOR 0.9% 1000 ML INJ 1,000 ML IV SCH (12:22)
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
[2017-12-01] MEDS ORDERED: METOPROLOL TARTRATE 5 MG/5 ML VIAL IV PUSH PRN (16:00)
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
--- NOTE | 2017-12-01 18:36 | EKG ---
Date Performed: 12/01/2017 Time Performed: 07:00:34 PTAGE: 77 years EKG: Atrial fibrillation with rapid ventricular response with non-sustained ventricular tachycar gisele. Left bundle branch block Abnormal ECG PREVIOUS TRACING : 11/29/2017 10.27 Since the prior tracing, there has been no significant [place] DOCTOR: Meghann Stone Interpretating Date/Time 12/01/2017 18:34:18
[2017-12-01] MEDS ORDERED: AMIODARONE 200 MG TAB PO SCH (21:00)
[2017-12-01] MEDS: HEPARIN SODIUM - SQ 10,000 UNITS/ML VIAL SQ SCH (21:00)
[2017-12-01] MEDS: REMOVE OLD LIDOCAINE PATCH T-DERMAL SCH (21:00)
--- NOTE | 2017-12-01 21:17 | RADRPT ---
EXAM DATE/TIME: 12/01/2017 20:34 [facility] COMPARISON: No previous studies available for comparison. INDICATIONS : Short of breath MEDICAL HISTORY : None. SURGICAL HISTORY : None. ENCOUNTER: Subsequent ACUITY: 4 - 6 days PAIN SCORE: 0/10 LOCATION: chest FINDINGS: Patchy, basilar predominant parenchymal consolidation again noted and not significantly changed. Smal l bilateral pleural effusions persist and also not significantly changed. Right pleural effusion is m ildly loculated laterally. Right rib fractures are again noted. A [id number]-[id number] right apical pneumothorax has developed. It measures approximately 2.5 cm in maxi mal thickness. A right chest tube remains in place, positioned at the base. Left subclavian central venous catheter with tip in the superior vena cava again noted. CONCLUSION: 1. Right chest tube remains in place at the base. A small to moderate apical pneumothorax has develop ed. 2. No significant change bibasilar parenchymal consolidation and small effusions. Danny Esquivel MD on December 01, 2017 at 21:14 Board Certified Radiologist. This report was verified electronically.
[2017-12-01 21:45] LABS: AUTOMATED NEUTROPHIL # 7.6 TH/MM3 (1.8-7.7); EOSINOPHIL % 0.5 % (0.0-4.0); HEMATOCRIT 27.7 % (39.0-51.0); HEMOGLOBIN 9.5 GM/DL (13.0-17.0); LYMPH % 6.2 % (9.0-44.0); LYMPHOCYTE # 0.6 TH/MM3 (1.0-4.8); MEAN CELL VOLUME 85.7 FL (80.0-100.0); MEAN CORPUSCULAR HEMOGLOBIN 29.5 PG (27.0-34.0); MEAN CORPUSCULAR HGB CONC 34.4 % (32.0-36.0); MEAN PLATELET VOLUME 8.6 FL (7.0-11.0); MONO % 12.2 % (0.0-8.0); MONOCYTE # 1.1 TH/MM3 (0-0.9); NEUT % 81.1 % (16.0-70.0); PLATELET COUNT 159 TH/MM3 (150-450); RED BLOOD COUNT 3.23 MIL/MM3 (4.50-5.90); RED CELL DISTRIBUTION WIDTH 16.9 % (11.6-17.2); WHITE BLOOD COUNT 9.4 TH/MM3 (4.0-11.0)
[2017-12-01 22:02] LABS: BICARBONATE 22.9 MEQ/L (21.0-32.0); CALCIUM 7.3 MG/DL (8.5-10.1); CREATININE 2.22 MG/DL (0.60-1.30); MAGNESIUM 2.5 MG/DL (1.5-2.5); PHOSPHORUS 3.5 MG/DL (2.5-4.9)
[2017-12-01] MEDS: RESP: ALBUTEROL 2.5 MG/3 ML NEB (PRN) INH (22:07)
[2017-12-01 22:14] LABS: CALCIUM-PROTEIN CORRECTED 8.3 MG/DL (8.5-10.1); TOTAL PROTEIN 5.2 GM/DL (6.4-8.2)
[2017-12-01] MEDS: PANTOPRAZOLE SODIUM 40 MG VIAL IV PUSH SCH (23:00)
[2017-12-02] VITALS (16 sets, daily range): BP systolic 90–138; BP diastolic 53–70; PULSE 44–62; RESP 14–28; TEMP 97.4–98.6; O2SAT 93–97
[2017-12-02] MEDS: MAGNESIUM HYDROXIDE SUSP 30 ML CUP PO SCH ×2 (00:16→13:15)
[2017-12-02] MEDS: CHLORHEXIDINE GLUCONATE 2 % 1 PACK (2 CLOTHS) TOP SCH (04:00)
[2017-12-02 04:02] LABS: AUTOMATED NEUTROPHIL # 6.8 TH/MM3 (1.8-7.7); BASOPHIL % 0.1 % (0.0-2.0); EOSINOPHIL # 0.1 TH/MM3 (0-0.4); EOSINOPHIL % 1.1 % (0.0-4.0); HEMATOCRIT 26.3 % (39.0-51.0); HEMOGLOBIN 9.1 GM/DL (13.0-17.0); LYMPH % 6.5 % (9.0-44.0); LYMPHOCYTE # 0.6 TH/MM3 (1.0-4.8); MEAN CELL VOLUME 85.2 FL (80.0-100.0); MEAN CORPUSCULAR HEMOGLOBIN 29.4 PG (27.0-34.0); MEAN CORPUSCULAR HGB CONC 34.5 % (32.0-36.0); MEAN PLATELET VOLUME 8.8 FL (7.0-11.0); MONO % 12.8 % (0.0-8.0); MONOCYTE # 1.1 TH/MM3 (0-0.9); NEUT % 79.5 % (16.0-70.0); PLATELET COUNT 145 TH/MM3 (150-450); RED BLOOD COUNT 3.08 MIL/MM3 (4.50-5.90); RED CELL DISTRIBUTION WIDTH 16.1 % (11.6-17.2); WHITE BLOOD COUNT 8.6 TH/MM3 (4.0-11.0)
[2017-12-02] MEDS: SODIUM CHLOR 0.9% 1000 ML INJ 1,000 ML IV SCH ×2 (04:05→20:23)
[2017-12-02 04:30] LABS: ALT (GPT) 28 U/L (12-78)
[2017-12-02 04:31] LABS: AST (GOT) 29 U/L (15-37); BICARBONATE 24.4 MEQ/L (21.0-32.0); BLOOD UREA NITROGEN 60 MG/DL (7-18); CALCIUM 7.5 MG/DL (8.5-10.1); CHLORIDE 109 MEQ/L (98-107); GLOMERULAR FILTRATION RATE 31 ML/MIN (>89); GLUCOSE,RANDOM 101 MG/DL (74-106); MAGNESIUM 2.3 MG/DL (1.5-2.5); SODIUM (NA) 144 MEQ/L (136-145)
[2017-12-02 04:32] LABS: ALKALINE PHOSPHATASE 51 U/L (45-117); TOTAL BILIRUBIN ADULT 0.8 MG/DL (0.2-1.0); TOTAL PROTEIN 4.9 GM/DL (6.4-8.2)
[2017-12-02] MEDS: METHOCARBAMOL 500 MG TAB PO SCH ×3 (06:00→21:32)
--- NOTE | 2017-12-02 06:03 | RADRPT ---
EXAM DATE/TIME: 12/02/2017 05:09 [facility] COMPARISON: CHEST SINGLE AP, December 01, 2017, 20:34. INDICATIONS : Short of breath. MEDICAL HISTORY : None. SURGICAL HISTORY : None. ENCOUNTER: Subsequent ACUITY: 1 week PAIN SCORE: Non-responsive. LOCATION: Bilateral chest FINDINGS: A right thoracostomy tube is seen within the subpulmonic location. Right apical pneumothorax is small and slightly smaller than the prior study. Consolidation within the lung bases bilaterally has shown some improvement. No discrete effusions. Heart normal in size. Scoliotic curvature to the thoracic s pine. Left subclavian central line. CONCLUSION: 1. Tiny right apical pneumothorax is slightly smaller. 2. Improving bibasilar consolidations. Kodak Green Jr., MD on December 02, 2017 at 6:00 Board Certified Radiologist. This report was verified electronically.
[2017-12-02 08:17] LABS: BANDS 2 % (0-6); LYMPHOCYTES 6 % (9-44); METAMYELOCYTES 1 % (0-1); MONOCYTES 9 % (0-8); MYELOCYTES 1 % (0-0); NEUTROPHIL # MANUAL DIFF 7.1 TH/MM3 (1.8-7.7); OVALOCYTES 1+ (NORMAL); POLYS (SEG NEUTROPHILS) 79 % (16-70)
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
[2017-12-02] MEDS ORDERED: FUROSEMIDE 20 MG/2 ML VIAL IV PUSH SCH (09:00)
[2017-12-02] MEDS: DOCUSATE SODIUM 50 MG/SENNA 8.6 MG TAB PO SCH ×2 (09:00→21:00)
[2017-12-02] MEDS: ARTIFICIAL TEARS OPTH SOLN 15 ML BTL EACH EYE SCH ×3 (09:00→17:18)
[2017-12-02] MEDS: LACTULOSE SYRUP 20 GM/30 ML CUP PO SCH (09:00)
[2017-12-02] MEDS: SODIUM CHLORIDE 0.9% FLUSH 10 ML FLUSH IV FLUSH SCH ×2 (09:12→21:00)
[2017-12-02] MEDS: HEPARIN SODIUM - SQ 10,000 UNITS/ML VIAL SQ SCH ×2 (09:12→21:32)
[2017-12-02] MEDS: LIDOCAINE HCL 5% PATCH T-DERMAL SCH (09:13)
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
--- NOTE | 2017-12-02 15:50 | HHI.NSPN ---
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 nasotracheal suction, and breathing treatments with nebulizers. Daily PT and OT Renal. monitor closely urine output, BUN and creatinine Endocrine.Acute hyperglycemia, likely reactive secondary to trauma Monitor glucose and administer low-dose insulin sliding scale as indicated ID monitor for signs of infection Protonix for stress ulcer prophylaxis Caprini Risk Assessment Model Point Value = 1 Point Value = 2 Point Value = 3 Point Value = 5 Age 41-60 Minor surgery BMI > 25 kg/m2 Swollen legs Varicose veins or History of unexplained or recurrent spontaneous Oral contraceptives or hormone replacement Sepsis (< 1 month) Serious lung disease, including pneumonia (< 1 month) Abnormal pulmonary function Acute myocardial infarction Congestive heart failure (< 1 month) History of inflammatory bowel disease Medical patient at bed rest Age 61-74 Arthroscopic surgery Major open surgery (> 45 min) Laparoscopic surgery (> 45 min) Malignancy Confined to bed (> 72 hours) Immobilizing plaster cast Central venous access Age >= 75 History of VTE Family history of VTE Factor V Leiden Prothrombin [id number] Lupus anticoagulant Anticardiolipin antibodies Elevated serum homocysteine Heparin-induced thrombocytopenia Other congenital or acquired thrombophilia Stroke (< 1 month) Elective arthroplasty Hip, pelvis, or leg fracture Acute spinal cord injury (< 1 month) Prophylaxis Regimen Total Risk Factor Score Risk Level Prophylaxis Regimen 0-1 Low Early ambulation 2 Moderate Order ONE of the following: *Sequential Compression Device (SCD) *Heparin 5000 units SQ BID 3-4 Higher Order ONE of the following medications: *Heparin 5000 units SQ TID *Enoxaparin/Lovenox 40 mg SQ daily (WT < 150 kg, CrCl > 30 mL/min) *Enoxaparin/Lovenox 30 mg SQ daily (WT < 150 kg, CrCl > 10-29 mL/min) *Enoxaparin/Lovenox 30 mg SQ BID (WT < 150 kg, CrCl > 30 mL/min) AND/OR *Sequential Compression Device (SCD) 5 or more Highest Order ONE of the following medications: *Heparin 5000 units SQ TID (Preferred with Epidurals) *Enoxaparin/Lovenox 40 mg SQ daily (WT < 150 kg, CrCl > 30 mL/min) *Enoxaparin/Lovenox 30 mg SQ daily (WT < 150 kg, CrCl > 10-29 mL/min) *Enoxaparin/Lovenox 30 mg SQ BID (WT < 150 kg, CrCl > 30 mL/min) AND *Sequential Compression Device (SCD) Warren amin and SCD's for DVT prophylaxis Further recommendations will be provided depending on the patient's clinical evaluation and follow up studies Discussed with his family at bedside The exam, history, and the medical decision-making described in the above note were completed with the assistance of the mid-level provider. I reviewed and agree with the findings presented. I attest that I had a [id number] encounter with the patient on the same day, and personally performed and documented my assessment and findings in the medical record. (Otto Gonzalez MD) Madyson Frausto Dec 02, 2017 15:50 Otto Gonzalez MD Dec 03, 2017 14:04
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
[2017-12-02] MEDS: oxyCODONE/ACETAMINOPHEN 5 MG/325 MG TAB PO PRN (18:37)
[2017-12-02] MEDS: REMOVE OLD LIDOCAINE PATCH T-DERMAL SCH (21:00)
[2017-12-02] MEDS: PANTOPRAZOLE SODIUM 40 MG VIAL IV PUSH SCH (23:00)
[2017-12-03] VITALS (14 sets, daily range): BP systolic 106–135; BP diastolic 55–72; PULSE 58–66; RESP 18–46; TEMP 97.7–99.3; O2SAT 92–96
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
[2017-12-03] MEDS: MAGNESIUM HYDROXIDE SUSP 30 ML CUP PO SCH ×3 (01:15→21:09)
[2017-12-03] MEDS: CHLORHEXIDINE GLUCONATE 2 % 1 PACK (2 CLOTHS) TOP SCH ×2 (04:00→21:06)
[2017-12-03 05:45] LABS: AUTOMATED NEUTROPHIL # 5.3 TH/MM3 (1.8-7.7); BASOPHIL % 0.1 % (0.0-2.0); EOSINOPHIL # 0.2 TH/MM3 (0-0.4); EOSINOPHIL % 2.5 % (0.0-4.0); HEMATOCRIT 25.9 % (39.0-51.0); HEMOGLOBIN 8.8 GM/DL (13.0-17.0); LYMPH % 7.5 % (9.0-44.0); LYMPHOCYTE # 0.5 TH/MM3 (1.0-4.8); MEAN CELL VOLUME 86.2 FL (80.0-100.0); MEAN CORPUSCULAR HEMOGLOBIN 29.3 PG (27.0-34.0); MEAN PLATELET VOLUME 8.6 FL (7.0-11.0); MONO % 12.3 % (0.0-8.0); MONOCYTE # 0.8 TH/MM3 (0-0.9); NEUT % 77.6 % (16.0-70.0); PLATELET COUNT 121 TH/MM3 (150-450); RED CELL DISTRIBUTION WIDTH 16.4 % (11.6-17.2); WHITE BLOOD COUNT 6.8 TH/MM3 (4.0-11.0)
--- NOTE | 2017-12-03 05:59 | RADRPT ---
EXAM DATE/TIME: 12/03/2017 05:05 [facility] COMPARISON: CHEST SINGLE AP, December 02, 2017, 5:09. INDICATIONS : Shortness of breath. MEDICAL HISTORY : None. SURGICAL HISTORY : None. ENCOUNTER: Subsequent ACUITY: 1 week PAIN SCORE: Non-responsive. LOCATION: Bilateral chest FINDINGS: A single portable frontal view of the chest shows no discernible pneumothorax on the right. Right bas ilar chest tube noted. Consolidation involving both lung bases but most pronounced on the left. This has progressed from the prior study. Heart is mildly enlarged. CONCLUSION: Progression of left lung infiltrate. No pneumothorax. Stable right lower lobe consolidation. Kodak Green Jr., MD on December 03, 2017 at 5:56 Board Certified Radiologist. This report was verified electronically.
[2017-12-03] MEDS: METHOCARBAMOL 500 MG TAB PO SCH ×3 (06:00→21:05)
[2017-12-03 07:01] LABS: ALBUMIN 1.8 GM/DL (3.4-5.0); BICARBONATE 22.9 MEQ/L (21.0-32.0); CALCIUM 7.4 MG/DL (8.5-10.1); CALCIUM-PROTEIN CORRECTED 8.8 MG/DL (8.5-10.1); CREATININE 2.04 MG/DL (0.60-1.30); MAGNESIUM 2.2 MG/DL (1.5-2.5); TOTAL BILIRUBIN ADULT 0.7 MG/DL (0.2-1.0); TOTAL PROTEIN 4.7 GM/DL (6.4-8.2)
[2017-12-03 08:05] LABS: BANDS 3 % (0-6); CORRECTED NUCLEATED RBC 1 /100 WBC (0-0); LYMPHOCYTES 7 % (9-44); METAMYELOCYTES 1 % (0-1); MONOCYTES 11 % (0-8); NEUTROPHIL # MANUAL DIFF 5.4 TH/MM3 (1.8-7.7); NUCLEATED RED BLOOD CELL 1 (0-0); POLYS (SEG NEUTROPHILS) 76 % (16-70)
[2017-12-03] MEDS: ARTIFICIAL TEARS OPTH SOLN 15 ML BTL EACH EYE SCH ×3 (09:00→17:16)
[2017-12-03] MEDS: LACTULOSE SYRUP 20 GM/30 ML CUP PO SCH (09:00)
[2017-12-03] MEDS: HEPARIN SODIUM - SQ 10,000 UNITS/ML VIAL SQ SCH ×2 (09:26→21:04)
[2017-12-03] MEDS: SODIUM CHLORIDE 0.9% FLUSH 10 ML FLUSH IV FLUSH SCH ×2 (09:26→21:03)
[2017-12-03] MEDS: DOCUSATE SODIUM 50 MG/SENNA 8.6 MG TAB PO SCH ×2 (09:26→21:04)
[2017-12-03] MEDS: LIDOCAINE HCL 5% PATCH T-DERMAL SCH (09:26)
--- NOTE | 2017-12-03 11:21 | HHI.NSPN ---
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 infection Protonix for stress ulcer prophylaxis Caprini Risk Assessment Model Point Value = 1 Point Value = 2 Point Value = 3 Point Value = 5 Age 41-60 Minor surgery BMI > 25 kg/m2 Swollen legs Varicose veins or History of unexplained or recurrent spontaneous Oral contraceptives or hormone replacement Sepsis (< 1 month) Serious lung disease, including pneumonia (< 1 month) Abnormal pulmonary function Acute myocardial infarction Congestive heart failure (< 1 month) History of inflammatory bowel disease Medical patient at bed rest Age 61-74 Arthroscopic surgery Major open surgery (> 45 min) Laparoscopic surgery (> 45 min) Malignancy Confined to bed (> 72 hours) Immobilizing plaster cast Central venous access Age >= 75 History of VTE Family history of VTE Factor V Leiden Prothrombin [id number] Lupus anticoagulant Anticardiolipin antibodies Elevated serum homocysteine Heparin-induced thrombocytopenia Other congenital or acquired thrombophilia Stroke (< 1 month) Elective arthroplasty Hip, pelvis, or leg fracture Acute spinal cord injury (< 1 month) Prophylaxis Regimen Total Risk Factor Score Risk Level Prophylaxis Regimen 0-1 Low Early ambulation 2 Moderate Order ONE of the following: *Sequential Compression Device (SCD) *Heparin 5000 units SQ BID 3-4 Higher Order ONE of the following medications: *Heparin 5000 units SQ TID *Enoxaparin/Lovenox 40 mg SQ daily (WT < 150 kg, CrCl > 30 mL/min) *Enoxaparin/Lovenox 30 mg SQ daily (WT < 150 kg, CrCl > 10-29 mL/min) *Enoxaparin/Lovenox 30 mg SQ BID (WT < 150 kg, CrCl > 30 mL/min) AND/OR *Sequential Compression Device (SCD) 5 or more Highest Order ONE of the following medications: *Heparin 5000 units SQ TID (Preferred with Epidurals) *Enoxaparin/Lovenox 40 mg SQ daily (WT < 150 kg, CrCl > 30 mL/min) *Enoxaparin/Lovenox 30 mg SQ daily (WT < 150 kg, CrCl > 10-29 mL/min) *Enoxaparin/Lovenox 30 mg SQ BID (WT < 150 kg, CrCl > 30 mL/min) AND *Sequential Compression Device (SCD) Warren amin and SCD's for DVT prophylaxis Discussed with family at bedside The exam, history, and the medical decision-making described in the above note were completed with the assistance of the mid-level provider. I reviewed and agree with the findings presented. I attest that I had a [id number] encounter with the patient on the same day, and personally performed and documented my assessment and findings in the medical record. (Otto Gonzalez MD) Madyson Frausto Dec 03, 2017 11:21 Otto Gonzalez MD Dec 03, 2017 14:06
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
[2017-12-03] MEDS: SODIUM CHLOR 0.9% 1000 ML INJ 1,000 ML IV SCH (13:04)
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
[2017-12-03] MEDS: REMOVE OLD LIDOCAINE PATCH T-DERMAL SCH (21:00)
[2017-12-03] MEDS: RESP: ALBUTEROL 2.5 MG/3 ML NEB (PRN) INH (21:54)
[2017-12-04] VITALS (16 sets, daily range): BP systolic 111–163; BP diastolic 56–76; PULSE 57–76; RESP 12–20; TEMP 98–99; O2SAT 92–99
[2017-12-04] MEDS: PANTOPRAZOLE SODIUM 40 MG VIAL IV PUSH SCH ×2 (00:17→20:24)
[2017-12-04] MEDS: MORPHINE SULFATE 4 MG/ML INJ IV PUSH PRN ×2 (00:18→17:33)
[2017-12-04] MEDS: ONDANSETRON HCL 4 MG/2 ML VIAL IV PUSH PRN (00:19)
--- NOTE | 2017-12-04 01:55 | RADRPT ---
EXAM DATE/TIME: 12/04/2017 01:04 [facility] COMPARISON: CHEST SINGLE AP, December 03, 2017, 5:05. INDICATIONS : Shortness of breath. MEDICAL HISTORY : Hypertension. SURGICAL HISTORY : None. ENCOUNTER: Subsequent ACUITY: 1 week PAIN SCORE: Non-responsive. LOCATION: Bilateral chest FINDINGS: A single portable frontal view of the chest shows a small apical pneumothorax. This was not present o n the prior study. The right subpulmonic chest tube is seen on the right. Left lung consolidation is seen throughout the left lung. This is unchanged. Heart is mildly enlarged. Left subclavian central l ine. Right-sided rib fractures. CONCLUSION: 1. Tiny right apical pneumothorax with a right subpulmonic chest tube. 2. Persistent consolidation of the majority of the left lung. Kodak Green Jr., MD on December 04, 2017 at 1:53 Board Certified Radiologist. This report was verified electronically.
[2017-12-04] MEDS: METHOCARBAMOL 500 MG TAB PO SCH ×3 (06:08→20:23)
[2017-12-04 06:13] LABS: AUTOMATED NEUTROPHIL # 4.2 TH/MM3 (1.8-7.7); BASOPHIL % 0.1 % (0.0-2.0); EOSINOPHIL # 0.2 TH/MM3 (0-0.4); EOSINOPHIL % 3.8 % (0.0-4.0); HEMATOCRIT 26.3 % (39.0-51.0); HEMOGLOBIN 8.9 GM/DL (13.0-17.0); LYMPH % 9.6 % (9.0-44.0); LYMPHOCYTE # 0.5 TH/MM3 (1.0-4.8); MEAN CELL VOLUME 86.5 FL (80.0-100.0); MEAN CORPUSCULAR HEMOGLOBIN 29.2 PG (27.0-34.0); MEAN CORPUSCULAR HGB CONC 33.8 % (32.0-36.0); MEAN PLATELET VOLUME 8.2 FL (7.0-11.0); MONO % 11.4 % (0.0-8.0); MONOCYTE # 0.6 TH/MM3 (0-0.9); NEUT % 75.1 % (16.0-70.0); PLATELET COUNT 91 TH/MM3 (150-450); RED BLOOD COUNT 3.04 MIL/MM3 (4.50-5.90); RED CELL DISTRIBUTION WIDTH 17.4 % (11.6-17.2); WHITE BLOOD COUNT 5.6 TH/MM3 (4.0-11.0)
[2017-12-04 06:44] LABS: ALBUMIN 1.7 GM/DL (3.4-5.0); AST (GOT) 22 U/L (15-37); BICARBONATE 25.1 MEQ/L (21.0-32.0); BLOOD UREA NITROGEN 43 MG/DL (7-18); CALCIUM 7.8 MG/DL (8.5-10.1); CHLORIDE 112 MEQ/L (98-107); CREATININE 1.83 MG/DL (0.60-1.30); GLOMERULAR FILTRATION RATE 36 ML/MIN (>89); GLUCOSE,RANDOM 99 MG/DL (74-106); MAGNESIUM 2.3 MG/DL (1.5-2.5); SODIUM (NA) 145 MEQ/L (136-145)
[2017-12-04 06:45] LABS: ALT (GPT) 27 U/L (12-78)
[2017-12-04 06:48] LABS: ALKALINE PHOSPHATASE 49 U/L (45-117); TOTAL BILIRUBIN ADULT 0.6 MG/DL (0.2-1.0); TOTAL PROTEIN 4.6 GM/DL (6.4-8.2)
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
[2017-12-04] MEDS: SODIUM CHLORIDE 0.9% FLUSH 10 ML FLUSH IV FLUSH SCH ×2 (09:00→20:23)
[2017-12-04] MEDS: ARTIFICIAL TEARS OPTH SOLN 15 ML BTL EACH EYE SCH ×3 (09:00→17:32)
[2017-12-04] MEDS: HEPARIN SODIUM - SQ 10,000 UNITS/ML VIAL SQ SCH (09:00)
[2017-12-04 09:32] LABS: BANDS 6 % (0-6); LYMPHOCYTES 6 % (9-44); METAMYELOCYTES 2 % (0-1); MONOCYTES 5 % (0-8); NEUTROPHIL # MANUAL DIFF 4.9 TH/MM3 (1.8-7.7); OVALOCYTES 1+ (NORMAL); POLYS (SEG NEUTROPHILS) 79 % (16-70)
[2017-12-04] MEDS: LACTULOSE SYRUP 20 GM/30 ML CUP PO SCH (10:13)
[2017-12-04] MEDS: LIDOCAINE HCL 5% PATCH T-DERMAL SCH (10:13)
[2017-12-04] MEDS: DOCUSATE SODIUM 50 MG/SENNA 8.6 MG TAB PO SCH ×2 (10:13→20:23)
[2017-12-04] MEDS ORDERED: HEPARIN SODIUM - IV 10,000 UNITS/10 ML VIAL IV PUSH ONE ×2 (10:15→11:30)
[2017-12-04 10:53] LABS: PROTHROMBIN TIME - PATIENT 10.5 SEC (9.8-11.6)
[2017-12-04] MEDS: HEPARIN-D5W 25,000 U/250 ML 250 ML IV PRN ×2 (11:51→19:33)
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
[2017-12-04] MEDS: hydrALAZINE HCL 20 MG/ML VIAL IV PUSH PRN (15:14)
[2017-12-04] MEDS: MAGNESIUM HYDROXIDE SUSP 30 ML CUP PO SCH (15:14)
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
[2017-12-04] MEDS: SODIUM CHLOR 0.9% 1000 ML INJ 1,000 ML IV SCH (16:06)
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
[2017-12-04] MEDS: REMOVE OLD LIDOCAINE PATCH T-DERMAL SCH (20:23)
[2017-12-04] MEDS ORDERED: methylPREDNISolone SOD SUCC 40 MG/1 ML VIAL IV PUSH SCH (21:00)
[2017-12-05] VITALS (15 sets, daily range): BP systolic 121–147; BP diastolic 59–74; PULSE 61–68; RESP 16–23; TEMP 97.5–100; O2SAT 91–98
[2017-12-05] MEDS: MAGNESIUM HYDROXIDE SUSP 30 ML CUP PO SCH ×3 (00:09→20:40)
[2017-12-05] MEDS: CHLORHEXIDINE GLUCONATE 2 % 1 PACK (2 CLOTHS) TOP SCH (00:09)
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
[2017-12-05] MEDS: oxyCODONE/ACETAMINOPHEN 5 MG/325 MG TAB PO PRN (05:14)
[2017-12-05] MEDS: methylPREDNISolone SOD SUCC 40 MG/1 ML VIAL IV PUSH SCH ×3 (05:14→20:40)
[2017-12-05] MEDS: METHOCARBAMOL 500 MG TAB PO SCH ×3 (05:14→20:40)
[2017-12-05] MEDS: HEPARIN-D5W 25,000 U/250 ML 250 ML IV PRN (05:15)
[2017-12-05 05:44] LABS: AUTOMATED NEUTROPHIL # 7.4 TH/MM3 (1.8-7.7); BASOPHIL % 0.2 % (0.0-2.0); EOSINOPHIL # 0.2 TH/MM3 (0-0.4); EOSINOPHIL % 2.8 % (0.0-4.0); HEMATOCRIT 25.9 % (39.0-51.0); HEMOGLOBIN 8.8 GM/DL (13.0-17.0); LYMPH % 5.4 % (9.0-44.0); LYMPHOCYTE # 0.5 TH/MM3 (1.0-4.8); MEAN CELL VOLUME 86.3 FL (80.0-100.0); MEAN CORPUSCULAR HEMOGLOBIN 29.1 PG (27.0-34.0); MEAN CORPUSCULAR HGB CONC 33.8 % (32.0-36.0); MEAN PLATELET VOLUME 8.1 FL (7.0-11.0); MONO % 8.5 % (0.0-8.0); MONOCYTE # 0.8 TH/MM3 (0-0.9); NEUT % 83.1 % (16.0-70.0); PLATELET COUNT 48 TH/MM3 (150-450); RED BLOOD COUNT 3.01 MIL/MM3 (4.50-5.90); RED CELL DISTRIBUTION WIDTH 17.2 % (11.6-17.2); WHITE BLOOD COUNT 8.9 TH/MM3 (4.0-11.0)
[2017-12-05 06:16] LABS: ALBUMIN 1.7 GM/DL (3.4-5.0); AST (GOT) 20 U/L (15-37); BICARBONATE 23.9 MEQ/L (21.0-32.0); BLOOD UREA NITROGEN 37 MG/DL (7-18); CALCIUM 7.8 MG/DL (8.5-10.1); CHLORIDE 111 MEQ/L (98-107); CREATININE 1.66 MG/DL (0.60-1.30); GLOMERULAR FILTRATION RATE 40 ML/MIN (>89); GLUCOSE,RANDOM 109 MG/DL (74-106); MAGNESIUM 2.2 MG/DL (1.5-2.5); SODIUM (NA) 143 MEQ/L (136-145)
[2017-12-05 06:18] LABS: ALT (GPT) 25 U/L (12-78)
[2017-12-05 06:19] LABS: ALKALINE PHOSPHATASE 51 U/L (45-117); TOTAL BILIRUBIN ADULT 0.8 MG/DL (0.2-1.0); TOTAL PROTEIN 4.6 GM/DL (6.4-8.2)
[2017-12-05 07:31] LABS: BANDS 8 % (0-6); LYMPHOCYTES 5 % (9-44); MONOCYTES 4 % (0-8); NEUTROPHIL # MANUAL DIFF 7.9 TH/MM3 (1.8-7.7); POLYS (SEG NEUTROPHILS) 81 % (16-70)
[2017-12-05 07:32] LABS: OVALOCYTES 1+ (NORMAL)
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
[2017-12-05] MEDS: ARTIFICIAL TEARS OPTH SOLN 15 ML BTL EACH EYE SCH ×3 (09:00→18:00)
[2017-12-05] MEDS: SODIUM CHLORIDE 0.9% FLUSH 10 ML FLUSH IV FLUSH SCH ×2 (09:00→20:00)
[2017-12-05] MEDS: LACTULOSE SYRUP 20 GM/30 ML CUP PO SCH (09:00)
[2017-12-05] MEDS ORDERED: MISCELLANEOUS PHARMACY INFORMATION OTHER ONE (10:00)
[2017-12-05] MEDS: DOCUSATE SODIUM 50 MG/SENNA 8.6 MG TAB PO SCH ×2 (10:23→20:00)
[2017-12-05] MEDS: LIDOCAINE HCL 5% PATCH T-DERMAL SCH (10:24)
[2017-12-05] MEDS: ARGATROBAN INJ 250 MG in SODIUM CHLOR 0.9% 250 ML INJ 250 ML IV PRN (11:05)
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
[2017-12-05] MEDS: SODIUM CHLOR 0.9% 1000 ML INJ 1,000 ML IV SCH (13:25)
[2017-12-05] MEDS: oxyCODONE/ACETAMINOPHEN 10 MG/325 MG TAB PO PRN (16:30)
--- NOTE | 2017-12-05 17:01 | HHI.NSPN ---
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 The exam, history, and the medical decision-making described in the above note were completed with the assistance of the mid-level provider. I reviewed and agree with the findings presented. I attest that I had a [id number] encounter with the patient on the same day, and personally performed and documented my assessment and findings in the medical record. Otto Gonzalez MD Dec 05, 2017 17:00
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
--- NOTE | 2017-12-05 19:35 | HHI.PR ---
Subjective Remarks Up in a Chair and on High Flow O2 50 %, Sats 95. Chest tube draining. Has leg edema. No Fever. Objective Vital Signs Date Time Temp Pulse Resp B/P (MAP) Pulse Ox O2 Delivery O2 Flow Rate FiO2 12/05/17 16:00 65 12/05/17 16:00 97.5 65 19 147/74 (98) 94 12/05/17 12:14 95 High Flow Nasal Cannula 35.00 38 12/05/17 12:00 64 12/05/17 12:00 97.8 64 16 121/59 (79) 95 12/05/17 08:00 98.8 61 17 134/71 (92) 94 12/05/17 08:00 61 12/05/17 08:00 94 Nasal Cannula 40.00 50 Electrical Cad Designer 12/05/17 06:14 18 12/05/17 06:00 64 12/05/17 04:30 94 High Flow Nasal Cannula 35.00 50 12/05/17 04:00 98.8 67 20 135/63 (87) 95 12/05/17 04:00 67 12/05/17 02:00 62 12/05/17 01:45 98 50 12/05/17 00:00 100.0 64 17 134/68 (90) 96 12/05/17 00:00 64 12/04/17 22:19 97 50 12/04/17 22:00 66 12/04/17 20:57 94 High Flow Nasal Cannula 50.00 35 12/04/17 20:00 72 12/04/17 20:00 99.0 70 20 111/57 (75) 92 I/O 12/04/17 12/04/17 12/04/17 12/05/17 12/05/17 12/05/17 06:59 14:59 22:59 06:59 14:59 22:59 Intake Total 120 ml 1969.7 ml 1103.3 ml 1067 ml 480 ml Output Total 1500 ml 1450 ml 940 ml 1035 ml Balance -1380 ml 519.7 ml 163.3 ml 1067 ml -555 ml Intake Oral 120 ml 720 ml 480 ml IV Total 515.7 ml 183.3 ml 1067 ml Lipid 920 ml Packed Cells 400 ml FFP 334 ml Output Urine Total 1200 ml 1150 ml 800 ml 775 ml Stool Total 0 ml Chest Tube Drainage Total 300 ml 300 ml 140 ml 260 ml # Bowel Movements 0 0 Result Diagram: 12/05/17 0535 12/05/17 0535 Objective Remarks Objective Remarks GENERAL: 77-year-old male. with periorbital edema SKIN: Warm and dry. Multiple evolving ecchymoses bilateral upper and lower extremities. HEAD: Atraumatic. Normocephalic. Abrasions on face. EYES: Pupils equal and round 3 mm bilaterally and react. No scleral icterus. No injection or drainage. ENT: No nasal bleeding . Mucous membranes pink and moist. NECK: Trachea midline. CARDIOVASCULAR: Regular rate and rhythm. S1, S2. RESPIRATORY: On high flow O2, Breath sounds equal bilaterally. Scattered wheezes bilaterally. Occ Crackles at bases : Alvarado catheter in place. MUSCULOSKELETAL: Extremities without clubbing, cyanosis, but generalized edema present. No obvious deformities. NEUROLOGICAL: Moves 4 limbs. O X 3, conversant. Assessment and Plan Assessment and Plan Plan A/P Assessment and Plan Left parieto-occipital punctate hemorrhage T5 inferior endplate fracture CT brain admission revealed a left septal supraorbital swelling with a right parietal scalp hematoma along with a left parieto-occipital punctate hemorrhage Followed by neurosurgery CV: Hemorrhagic shock(resolved) Hypotension A. fib and on Argatroban. Paroxysmal a-fib Amiodarone and By mouth Cardizem held currently. Cardiology following. Resp: Acute respiratory failure Rib fractures -right 2, 3, 4, 5, 6, 7, 8 and left to Right hemothorax Posterior right lung contusion Superior mediastinal hematoma DVT with question of PE Albuterol/ipratropium aerosols every 6 hours with albuterol aerosols every [address] thorax revealed rib fractures, right hemothorax and lung contusions as above. Extubated 11/27. Obtained lower extremity venous Dopplers which was positive for DVT right common femoral vein. Soft mechanical diet Pantoprazole for GI prophylaxis Endo: Hyperglycemia Sliding scale insulin to maintain euglycemia with Accu-Cheks every 6 hours Renal: Status post selective right renal artery angiogram embolization Acute kidney injury Monitor Urine output and Repeat BMP. Sina Wills MD Dec 05, 2017 19:35
[2017-12-05] MEDS: REMOVE OLD LIDOCAINE PATCH T-DERMAL SCH (20:00)
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
[2017-12-05] MEDS: PANTOPRAZOLE SODIUM 40 MG VIAL IV PUSH SCH (23:06)
[2017-12-06] VITALS (13 sets, daily range): BP systolic 130–167; BP diastolic 66–82; PULSE 56–74; RESP 12–20; TEMP 96.4–98.7; O2SAT 93–96
[2017-12-06] MEDS: MAGNESIUM HYDROXIDE SUSP 30 ML CUP PO SCH ×2 (01:15→13:15)
[2017-12-06] MEDS: CHLORHEXIDINE GLUCONATE 2 % 1 PACK (2 CLOTHS) TOP SCH (03:02)
[2017-12-06 03:52] LABS: AUTOMATED NEUTROPHIL # 5.9 TH/MM3 (1.8-7.7); BASOPHIL % 0.2 % (0.0-2.0); HEMATOCRIT 27.2 % (39.0-51.0); HEMOGLOBIN 9.1 GM/DL (13.0-17.0); LYMPH % 3.1 % (9.0-44.0); LYMPHOCYTE # 0.2 TH/MM3 (1.0-4.8); MEAN CELL VOLUME 86.3 FL (80.0-100.0); MEAN CORPUSCULAR HGB CONC 33.6 % (32.0-36.0); MONO % 3.7 % (0.0-8.0); MONOCYTE # 0.2 TH/MM3 (0-0.9); PLATELET COUNT 80 TH/MM3 (150-450); RED BLOOD COUNT 3.15 MIL/MM3 (4.50-5.90); RED CELL DISTRIBUTION WIDTH 16.8 % (11.6-17.2); WHITE BLOOD COUNT 6.3 TH/MM3 (4.0-11.0)
[2017-12-06 04:24] LABS: ALBUMIN 1.8 GM/DL (3.4-5.0); ALT (GPT) 24 U/L (12-78); AST (GOT) 22 U/L (15-37); BICARBONATE 25.5 MEQ/L (21.0-32.0); BLOOD UREA NITROGEN 41 MG/DL (7-18); CALCIUM 7.5 MG/DL (8.5-10.1); CHLORIDE 112 MEQ/L (98-107); CREATININE 1.68 MG/DL (0.60-1.30); GLOMERULAR FILTRATION RATE 40 ML/MIN (>89); GLUCOSE,RANDOM 148 MG/DL (74-106); MAGNESIUM 2.6 MG/DL (1.5-2.5); SODIUM (NA) 144 MEQ/L (136-145)
[2017-12-06 04:26] LABS: ALKALINE PHOSPHATASE 55 U/L (45-117); TOTAL BILIRUBIN ADULT 0.6 MG/DL (0.2-1.0); TOTAL PROTEIN 5.3 GM/DL (6.4-8.2)
[2017-12-06 04:32] LABS: HELMET CELLS OCC (NORMAL)
[2017-12-06 04:33] LABS: ACANTHOCYTES 1+ (NORMAL)
[2017-12-06] MEDS: METHOCARBAMOL 500 MG TAB PO SCH ×3 (05:09→20:19)
[2017-12-06] MEDS: methylPREDNISolone SOD SUCC 40 MG/1 ML VIAL IV PUSH SCH (05:09)
[2017-12-06] MEDS: ARGATROBAN INJ 250 MG in SODIUM CHLOR 0.9% 250 ML INJ 250 ML IV PRN (05:09)
[2017-12-06] MEDS: DOCUSATE SODIUM 50 MG/SENNA 8.6 MG TAB PO SCH ×2 (08:47→20:19)
[2017-12-06] MEDS: LIDOCAINE HCL 5% PATCH T-DERMAL SCH (08:47)
[2017-12-06] MEDS: LACTULOSE SYRUP 20 GM/30 ML CUP PO SCH (08:47)
[2017-12-06] MEDS: ARTIFICIAL TEARS OPTH SOLN 15 ML BTL EACH EYE SCH ×3 (09:00→18:00)
[2017-12-06] MEDS: SODIUM CHLORIDE 0.9% FLUSH 10 ML FLUSH IV FLUSH SCH ×2 (09:00→20:20)
[2017-12-06] MEDS: oxyCODONE/ACETAMINOPHEN 10 MG/325 MG TAB PO PRN ×3 (10:26→20:20)
--- NOTE | 2017-12-06 11:30 | HHI.CCPN ---
Subjective Remarks/Hospital Course This is a 77-year-old male. The admission 11/25/2017. Date of consultation 11/26/2017. Past medical history i is unknown. Patient is primarily Congolese-speaking. No family is available. Patient was life flighted to this facility with a GCS of around 14. Currently is intubated in a c-collar. Pertinent imaging CT brain -small punctate left parietal orbital punctate hemorrhage. CT maxillofacial -left septal supraorbital edema. Right parietal scalp hematoma CT thorax -right ribs 2, 3, 4, 5, 6,'s 7, a fractured left sacral fracture. Right hemothorax. Posterior right pulmonary contusion. Superior mediastinal hematoma. CT abdomen/pelvis -14 cm right retroperitoneal hematoma. 3.4 cm right adrenal mass CT C-spine -negative CT T-spine-T5 inferior endplate fracture CT L-spine -L3 Schmorl node. 1.4 cm lytic lesion left ilium Patient underwent a right renal angiography with embolization. No bleeding from left kidney. Transfuse 4 units PRBCs. Started low-dose phenylephrine drip at 20 mg/min. 11/26: Improved hemodynamics. Mechanical ventilation will be prolonged by rib fractures and lung contusion. RLL collapsed this morning, may need bronch. 11/27: RLL expanding, thorax evacuated of air. Strong on SBT 01/24. Extubate. 11/28: Oxygenation marginal and requiring BiPAP NIV now. Desaturation to 70s on NC. Effort strong. 11/29: NSR last evening, back in a-fib today at 0600, rate 140s. Restart amiodarone, increase diltiazem CD to 300. 11/30: Sats marginal on partial NRBM. States he feels comfortable and not SOB. CXR with pulmonary venous congestion and bilateral effusions. 12/01: Remains on partial rebreather. He denies shortness of breath though appears to be using accessory muscles of respiration. 12/02: Patient converted to sinus rhythm yesterday and subsequent of bradycardia and hypotension. Cardizem drip and amiodarone drip stopped. By mouth Cardizem held. He was started on phenylephrine for hypotension. Patient has also required BiPAP since yesterday evening. This morning he appears comfortable on BiPAP with full facemask. He states that his breathing better. Heart rate remained in the 50s. On phenylephrine 20 mics per minute. 12/03: Patient resting in bed. Appears comfortable on high flow O2 at 4 L/m 80 % FiO2. States that his breathing is somewhat improving. 12/04: Positive for DVT to right femoral vein. Being started on anticoagulation per trauma team. On 30 L/m 40% FiO2. 12/05: Lung expansion much improved. Chest wall stability better. Remains edematous but improving. Argatroban started due to low platelets, agree. 12/06: Strong cough effort today and good clearance of secretions. Breathing more comfortably. Objective Vital Signs Date Time Temp Pulse Resp B/P (MAP) Pulse Ox O2 Delivery O2 Flow Rate FiO2 12/06/17 09:26 95 Nasal Cannula 2.00 12/06/17 07:00 40 12/06/17 06:00 60 12/06/17 04:00 98.6 12 144/73 (96) Intake and Output 12/06/17 12/06/17 12/07/17 08:00 16:00 00:00 Intake Total 480 ml Output Total 656 ml Balance -176 ml Result Diagram: 12/06/17 0343 12/06/17 0343 Other Results Microbiology Date/Time Source Procedure Growth Status 12/06/17 02:15 Stool Stool Stool Occult Blood (JULITO) - Final HEMOCCULT POSITIVE Complete Imaging Last Impressions Thoracic Spine CT 11/25/172019 Signed Impressions: Service Date/Time: Saturday, November 25, 2017 20:20 - CONCLUSION: 1. Possible nondisplaced inferior endplate fracture of T5. 2. S-shaped scoliosis in the thoracic spine, convex to the left the upper thoracic region and convex right in the thoracic region. This curvature could be related to multiple healing right rib fractures. Kodak Mark MD Lumbar Spine CT 11/25/172019 Signed Impressions: Service Date/Time: Saturday, November 25, 2017 20:20 - CONCLUSION: No evidence of recent bony injury in the lumbar spine. Kodak Mark MD Pelvis X-Ray 11/25/172006 Signed Impressions: Service Date/Time: Saturday, November 25, 2017 20:03 - CONCLUSION: The bony pelvic ring appears grossly intact. Kodak Mark MD Head CT 11/25/172006 Signed Impressions: Service Date/Time: Saturday, November 25, 2017 20:15 - CONCLUSION: 1. Solitary punctate hemorrhage in the left mid convexity parietal-occipital region. 2. Right high parietal scalp hematoma without evidence of skull fracture. 3. Left supraorbital soft tissue swelling. Kodak Mark MD Chest X-Ray 11/25/172006 Signed Impressions: Service Date/Time: Saturday, November 25, 2017 20:03 - CONCLUSION: Multiple displaced right rib fractures Kodak Mark MD Chest CT 11/25/172006 Signed Impressions: Service Date/Time: Saturday, November 25, 2017 20:20 - CONCLUSION: 1. Multiple right rib fractures both lateral and posterior suggesting possible flail chest. 2. Contusion or edema in the posterior right lung and small amount of right pleural fluid/blood. 3. No evidence of pneumothorax. 4. Possible left 2nd rib fracture and possible small superior mediastinal hematoma adjacent to the esophagus. Kodak Mark MD Cervical Spine CT 11/25/172006 Signed Impressions: Service Date/Time: Saturday, November 25, 2017 20:15 - CONCLUSION: 1. No evidence of compression deformity or spondylolisthesis in the cervical spine. 2. Medial right rib fractures 2nd and 3rd ribs. Posterior left 2nd rib fracture. Kodak Mark MD Abdomen/Pelvis CT 11/25/172006 Signed Impressions: Service Date/Time: Saturday, November 25, 2017 20:20 - CONCLUSION: 1. Evidence of active bleeding in the right retroperitoneum with hematoma measuring in excess of 14 cm, presumably of right renal artery origin, possibly near the origin from the aorta. 2. The liver, pancreas, and spleen are intact. 3. Multiple right rib fractures and small size right pleural fluid. 4. 3.4 cm right adrenal mass. Kodak Mark MD Maxillofacial CT 11/25/17 Signed Impressions: Service Date/Time: Saturday, November 25, 2017 20:30 - CONCLUSION: 1. No fracture seen. 2. Left supraorbital soft tissue swelling and right parietal scalp hematoma. Kodak Mark MD Objective Remarks GENERAL: 77-year-old male. Resolving periorbital and facial ecchymoses. SKIN: Warm and dry. Multiple evolving ecchymoses bilateral upper and lower extremities. HEAD: Atraumatic. Normocephalic. EYES: Pupils equal and round 2 mm bilaterally and react. No scleral icterus. No injection or drainage. ENT: No nasal bleeding or discharge. Mucous membranes pink and moist. On high flow O2. NECK: Trachea midline. No airway obstruction. CARDIOVASCULAR: Regular rate and rhythm. NL S1, S2. Neck veins full. RESPIRATORY: On NC -> RA tolerated, Breath sounds equal bilaterally. No wheezing or crackles. GASTROINTESTINAL: Abdomen soft, non-tender, nondistended. Active bowel sounds. : Alvarado catheter in place. MUSCULOSKELETAL: Extremities without clubbing, cyanosis, less edema present. No obvious deformities. NEUROLOGICAL: Moves 4 limbs. O X 3, conversant. O X 3. Date of Insertion: Nov 25, 2017 Line: Central Venous Catheter (Request removal 12/05) Side: Left Location: Subclavian A/P Assessment and Plan Neuro/Psych: Left parieto-occipital punctate hemorrhage T5 inferior endplate fracture CT brain admission revealed a left septal supraorbital swelling with a right parietal scalp hematoma along with a left parieto-occipital punctate hemorrhage Followed by neurosurgery/Dr. Gonzalez. Repeat imaging per neurosurgery CV: Hemorrhagic shock(resolved) Hypotension A. fib Status post 4 units PRBCs, 2 FFP Off pressors currently. Paroxysmal a-fib Amiodarone and Cardizem drip held 12/02 in view of bradycardia and hypotension. By mouth Cardizem held currently. Cardiology following. Resp: Acute respiratory failure Rib fractures -right 2, 3, 4, 5, 6, 7, 8 and left to Right hemothorax Posterior right lung contusion Superior mediastinal hematoma DVT with question of PE Albuterol/ipratropium aerosols every 6 hours with albuterol aerosols every [address] thorax revealed rib fractures, right hemothorax and lung contusions as above. Extubated 11/27. On partial rebreather initially, currently on BiPAP. Possible TRALI. Chest x-ray does not look very abnormal however severe hypoxia noted. Obtained lower extremity venous Dopplers which was positive for DVT right common femoral vein. Being started on anticoagulation per trauma team with heparin GI: Push IS. Soft mechanical diet if respiratory status permits. Pantoprazole for GI prophylaxis Docusate sodium/senna 1 tablet twice daily for bowel regimen : Alvarado catheter has been placed for accurate I's and O's in a critically ill patient Endo: Hyperglycemia Sliding scale insulin to maintain euglycemia with Accu-Cheks every 6 hours Renal: Status post selective right renal artery angiogram embolization Acute kidney injury Maintain Alvarado catheter Monitor urine output Accurate I's and O's, monitor and replete electro lites, follow BUN/creatinine As needed flushing Alvarado due to hematuria Heme: Acute blood loss anemia Leukocytosis Status post 4 units PRBCs/ FFP. ID: Receive cefazolin. Perioperative antibiotics per Trauma Received DT 0.5 mg IM 1 FEN: Replace electrolytes as clinically indicated MSK: PT evaluate and treat Access -Left subclavian CVL placed 11/25/17 Prophylaxis -GI -pantoprazole -DVT - Now on anticoagulation with argatroban per trauma team for DVT on 12/05 Overall impression: Improving respiratory function. Will sign off. Fantasma Eubanks MD Dec 06, 2017 11:30
--- NOTE | 2017-12-06 13:22 | HHI.NSPN ---
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 personally performed and documented my assessment and findings in the medical record. Otto Gonzalez MD Dec 06, 2017 13:22
[2017-12-06 13:28] LABS: HEPARIN INDUCED PLATELET AB POSITIVE (NEGATIVE)
[2017-12-06] MEDS: SODIUM CHLOR 0.9% 1000 ML INJ 1,000 ML IV SCH (16:06)
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
[2017-12-06] MEDS: RESP: ALBUTEROL 2.5 MG/IPRATROPIUM 0.5 MG NEB (SCH) INH (19:51)
[2017-12-06] MEDS: APIXABAN 5 MG TABLET PO SCH (20:19)
[2017-12-06] MEDS: REMOVE OLD LIDOCAINE PATCH T-DERMAL SCH (20:21)
[2017-12-06] MEDS ORDERED: methylPREDNISolone SOD SUCC 40 MG/1 ML VIAL IV PUSH SCH (21:00)
[2017-12-06] MEDS: MORPHINE SULFATE 4 MG/ML INJ IV PUSH PRN (22:08)
[2017-12-07] VITALS (8 sets, daily range): BP systolic 138–159; BP diastolic 66–78; PULSE 66–71; RESP 17–20; TEMP 96.4–98.4; O2SAT 91–97
[2017-12-07] MEDS: MAGNESIUM HYDROXIDE SUSP 30 ML CUP PO SCH ×2 (00:41→14:45)
[2017-12-07] MEDS: CHLORHEXIDINE GLUCONATE 2 % 1 PACK (2 CLOTHS) TOP SCH (04:00)
[2017-12-07] MEDS: oxyCODONE/ACETAMINOPHEN 10 MG/325 MG TAB PO PRN (06:03)
[2017-12-07] MEDS: METHOCARBAMOL 500 MG TAB PO SCH ×3 (06:03→22:48)
[2017-12-07] MEDS: RESP: ALBUTEROL 2.5 MG/IPRATROPIUM 0.5 MG NEB (SCH) INH ×3 (07:50→19:55)
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
[2017-12-07] MEDS: ARTIFICIAL TEARS OPTH SOLN 15 ML BTL EACH EYE SCH ×3 (09:00→16:02)
[2017-12-07] MEDS: LACTULOSE SYRUP 20 GM/30 ML CUP PO SCH (09:18)
[2017-12-07] MEDS: FAMOTIDINE 20 MG TAB PO SCH ×2 (09:19→20:37)
[2017-12-07] MEDS: methylPREDNISolone SOD SUCC 40 MG/1 ML VIAL IV PUSH SCH (09:19)
[2017-12-07] MEDS: DOCUSATE SODIUM 50 MG/SENNA 8.6 MG TAB PO SCH ×2 (09:19→20:36)
[2017-12-07] MEDS: APIXABAN 5 MG TABLET PO SCH ×2 (09:19→20:35)
[2017-12-07] MEDS: SODIUM CHLORIDE 0.9% FLUSH 10 ML FLUSH IV FLUSH SCH ×2 (09:19→20:37)
[2017-12-07] MEDS: LIDOCAINE HCL 5% PATCH T-DERMAL SCH (09:20)
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
[2017-12-07] MEDS: SODIUM CHLOR 0.9% 1000 ML INJ 1,000 ML IV SCH (16:02)
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
[2017-12-07] MEDS: REMOVE OLD LIDOCAINE PATCH T-DERMAL SCH (20:39)
[2017-12-08] VITALS: BP 163/75; PULSE 73; RESP 20; TEMP 98.4; O2SAT 98
[2017-12-08] MEDS: MAGNESIUM HYDROXIDE SUSP 30 ML CUP PO SCH ×2 (01:15→13:15)
[2017-12-08] MEDS: CHLORHEXIDINE GLUCONATE 2 % 1 PACK (2 CLOTHS) TOP SCH (04:00)
[2017-12-08] MEDS: METHOCARBAMOL 500 MG TAB PO SCH ×3 (06:28→20:33)
[2017-12-08 06:47] LABS: BICARBONATE 26.6 MEQ/L (21.0-32.0); CALCIUM 7.6 MG/DL (8.5-10.1); CREATININE 1.61 MG/DL (0.60-1.30)
--- NOTE | 2017-12-08 07:33 | RADRPT ---
EXAM DATE/TIME: 12/08/2017 07:02 [facility] COMPARISON: CHEST SINGLE AP, December 07, 2017, 8:07. INDICATIONS : Evaluate for right sided pneumothorax. MEDICAL HISTORY : None. SURGICAL HISTORY : None. ENCOUNTER: Subsequent ACUITY: 1 week PAIN SCORE: 0/10 LOCATION: Bilateral chest FINDINGS: Tiny persistent right apical pneumothorax is noted and measures 14 mm. Right chest tube remains in pl angela in the right base. Perihilar and infrahilar patchiness is noted bilaterally. The heart is stable. CONCLUSION: 1. Tiny persistent right apical pneumothorax measuring 14 mm. 2. Perihilar and infrahilar patchiness bilaterally. Gary Cuadra MD on December 08, 2017 at 7:29 Board Certified Radiologist. This report was verified electronically.
[2017-12-08 08:00] VITALS: BP 161/76; PULSE 74; RESP 17; TEMP 98.4; O2SAT 95
[2017-12-08] MEDS: RESP: ALBUTEROL 2.5 MG/IPRATROPIUM 0.5 MG NEB (SCH) INH ×3 (08:01→21:01)
[2017-12-08 08:03] VITALS: O2SAT 96
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
[2017-12-08] MEDS: DOCUSATE SODIUM 50 MG/SENNA 8.6 MG TAB PO SCH ×2 (08:47→20:32)
[2017-12-08] MEDS: LACTULOSE SYRUP 20 GM/30 ML CUP PO SCH (08:47)
[2017-12-08] MEDS: SODIUM CHLORIDE 0.9% FLUSH 10 ML FLUSH IV FLUSH SCH ×2 (08:47→20:33)
[2017-12-08] MEDS: FAMOTIDINE 20 MG TAB PO SCH ×2 (08:48→20:32)
[2017-12-08] MEDS: APIXABAN 5 MG TABLET PO SCH ×2 (08:49→20:32)
[2017-12-08] MEDS: methylPREDNISolone SOD SUCC 40 MG/1 ML VIAL IV PUSH SCH (08:49)
[2017-12-08] MEDS: LIDOCAINE HCL 5% PATCH T-DERMAL SCH (08:49)
[2017-12-08] MEDS: ARTIFICIAL TEARS OPTH SOLN 15 ML BTL EACH EYE SCH ×3 (09:00→17:36)
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
[2017-12-08 12:00] VITALS: BP 153/77; PULSE 78; RESP 17; TEMP 98.8; O2SAT 92
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
[2017-12-08] MEDS: oxyCODONE/ACETAMINOPHEN 10 MG/325 MG TAB PO PRN ×2 (12:43→20:32)
[2017-12-08 15:00] VITALS: BP 155/79; PULSE 71; RESP 17; TEMP 96.2; O2SAT 95
--- NOTE | 2017-12-08 19:17 | HHI.PR ---
Subjective Remarks Up in a Chair and on O2 at 4L. CXR is better. Chest tube draining. Has leg edema. No Fever. Good output Objective Vital Signs Date Time Temp Pulse Resp B/P (MAP) Pulse Ox O2 Delivery O2 Flow Rate FiO2 12/08/17 15:00 96.2 71 17 155/79 (104) 95 12/08/17 12:00 98.8 78 17 153/77 (102) 92 12/08/17 10:52 2.00 95 12/08/17 08:03 96 Nasal Cannula 2.00 12/08/17 08:00 98.4 74 17 161/76 (104) 95 12/08/17 00:00 98.4 73 20 163/75 (104) 98 12/07/17 23:09 95 35 12/07/17 20:00 94 Nasal Cannula 2.00 12/07/17 20:00 97.3 71 18 159/78 (105) 94 12/07/17 19:55 96 Nasal Cannula 2.00 I/O 12/07/17 12/07/17 12/07/17 12/08/17 12/08/17 12/08/17 07:00 15:00 23:00 07:00 15:00 23:00 Intake Total 1200 ml 600 ml 700 ml Output Total 760 ml 1545 ml 1220 ml 2200 ml Balance -760 ml -345 ml -620 ml -1500 ml Intake Oral 1200 ml 600 ml 700 ml Output Urine Total 500 ml 1325 ml 1200 ml 2200 ml Chest Tube Drainage Total 260 ml 220 ml 20 ml # Voids 0 # Bowel Movements 0 2 1 1 Result Diagram: 12/06/17 0343 12/08/17 0600 Objective Remarks Objective Remarks GENERAL: 77-year-old male.alert and oriented. SKIN: Warm and dry. Multiple ecchymoses bilateral upper and lower extremities. HEAD: Atraumatic. Normocephalic. Abrasions on face. EYES: Pupils equal and round bilaterally and react. No scleral icterus. No injection or drainage. ENT: No nasal bleeding . Mucous membranes pink and moist. NECK: Trachea midline. CARDIOVASCULAR: Regular rate and rhythm. S1, S2. RESPIRATORY: On high flow O2, Breath sounds equal bilaterally. Scattered wheezes bilaterally. Occ Crackles at bases MUSCULOSKELETAL: Extremities without clubbing, cyanosis, but mild edema present. No obvious deformities. NEUROLOGICAL: Moves 4 limbs. O X 3, conversant. Assessment and Plan Assessment and Plan Plan A/P Assessment and Plan Left parieto-occipital punctate hemorrhage T5 inferior endplate fracture Resolving and Followed by Neurosurgery Hemorrhagic shock(resolved) Hypotension A. fib and on Argatroban. Resp: Acute respiratory failure Rib fractures -right 2, 3, 4, 5, 6, 7, 8 and left to Right hemothorax Posterior right lung contusion Superior mediastinal hematoma DVT with question of PE Albuterol/ipratropium aerosols every 6 hours with albuterol aerosols PRN every 2 hours. for Dyspnea Obtained lower extremity venous Doppler which was positive for DVT right common femoral vein. O2 at 4L and wean to keep sat >92 Soft mechanical diet Pantoprazole for GI prophylaxis Endo: Hyperglycemia Sliding scale insulin to maintain euglycemia with Accu-Cheks every 6 hours Renal: Status post selective right renal artery angiogram embolization Acute kidney injury Monitor Urine output PT and OT Evaluation Sina Wills MD Dec 08, 2017 19:17
[2017-12-08 20:00] VITALS: BP 158/75; PULSE 69; RESP 17; TEMP 97.1; O2SAT 97
--- NOTE | 2017-12-08 20:30 | RADRPT ---
EXAM DATE/TIME: 12/08/2017 19:33 [facility] COMPARISON: CHEST SINGLE AP, December 08, 2017, 7:02. INDICATIONS : Post right side chest tube removal MEDICAL HISTORY : Right pneumothorax SURGICAL HISTORY : None. ENCOUNTER: Subsequent ACUITY: 1 week PAIN SCORE: 0/10 LOCATION: Right chest FINDINGS: Right-sided chest tube has been removed. Right pneumothorax has increased in size slightly at the rig ht apex since chest tube removal. Bilateral mostly basilar airspace disease persists, similar to prio r study. Small effusions remain. CONCLUSION: 1. Removal of right chest tube with slight increase in right pneumothorax. There is about 2.3 cm of p leural separation in the right lung apex. Helio Kumari MD on December 08, 2017 at 20:27 Board Certified Radiologist. This report was verified electronically.
[2017-12-08] MEDS: REMOVE OLD LIDOCAINE PATCH T-DERMAL SCH (20:34)
[2017-12-09] VITALS: BP 136/71; PULSE 62; RESP 17; TEMP 98.1; O2SAT 98
[2017-12-09] MEDS: MAGNESIUM HYDROXIDE SUSP 30 ML CUP PO SCH ×2 (01:23→12:43)
[2017-12-09] MEDS: oxyCODONE/ACETAMINOPHEN 10 MG/325 MG TAB PO PRN ×3 (03:29→20:20)
[2017-12-09] MEDS: METHOCARBAMOL 500 MG TAB PO SCH ×3 (05:42→23:15)
[2017-12-09] MEDS ORDERED: Albuterol Neb INH (05:56)
[2017-12-09] MEDS ORDERED: OXYC1TAB63 PO (05:56)
[2017-12-09] MEDS ORDERED: METH500T3 PO (05:56)
[2017-12-09] MEDS ORDERED: OXYC1TAB36 PO (05:56)
[2017-12-09] MEDS ORDERED: PERI PO (05:56)
[2017-12-09] MEDS ORDERED: APIX5TAB PO (05:56)
[2017-12-09] MEDS: RESP: ALBUTEROL 2.5 MG/IPRATROPIUM 0.5 MG NEB (SCH) INH ×2 (07:41→12:49)
[2017-12-09 07:43] VITALS: O2SAT 97
[2017-12-09 08:00] VITALS: BP 181/85; PULSE 82; RESP 18; TEMP 97.3; O2SAT 90; O2SAT 94
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
[2017-12-09] MEDS: ARTIFICIAL TEARS OPTH SOLN 15 ML BTL EACH EYE SCH ×3 (09:00→17:53)
[2017-12-09] MEDS: APIXABAN 5 MG TABLET PO SCH ×2 (09:08→20:19)
[2017-12-09] MEDS: FAMOTIDINE 20 MG TAB PO SCH ×2 (09:08→20:19)
[2017-12-09] MEDS: LACTULOSE SYRUP 20 GM/30 ML CUP PO SCH (09:08)
[2017-12-09] MEDS: DOCUSATE SODIUM 50 MG/SENNA 8.6 MG TAB PO SCH ×2 (09:08→20:19)
[2017-12-09] MEDS: SODIUM CHLORIDE 0.9% FLUSH 10 ML FLUSH IV FLUSH SCH ×2 (09:09→20:20)
[2017-12-09] MEDS: LIDOCAINE HCL 5% PATCH T-DERMAL SCH (10:09)
--- NOTE | 2017-12-09 11:42 | RADRPT ---
EXAM DATE/TIME: 12/09/2017 11:26 [facility] COMPARISON: CHEST SINGLE AP, December 08, 2017, 19:33. INDICATIONS : Pneumothorax. MEDICAL HISTORY : Pneumothorax, right. SURGICAL HISTORY : Chest tube, right. ENCOUNTER: Subsequent ACUITY: 1 week PAIN SCORE: 2/10 LOCATION: Right chest FINDINGS: There continues to be a right-sided pneumothorax which is improved compared to the prior study. There is now approximately 1 cm separation at the apex. This is improved compared to the prior study. Ther e continues to be scattered bilateral pulmonary infiltrates. The infiltrate in the right lung base ap pears to be mildly increased compared to the prior study. The heart size is stable. The bony structur es are stable. CONCLUSION: 1. Small right apical pneumothorax which is improved compared to the prior exam. There is now 1 cm se paration at the apex. 2. There continues to be scattered bilateral pulmonary infiltrates. The right lower lung infiltrate a ppears to be mildly increased. Rafael Russell MD on December 09, 2017 at 11:36 Board Certified Radiologist. This report was verified electronically.
[2017-12-09 12:00] VITALS: BP 149/68; PULSE 81; RESP 16; TEMP 97.8; O2SAT 91
--- NOTE | 2017-12-09 13:02 | HHI.PR ---
Subjective Remarks Up in a Chair and on O2 at 3 L.Feels better. Chest tube draining. Has leg edema. C/O swelling of scrotum Objective Vital Signs Date Time Temp Pulse Resp B/P (MAP) Pulse Ox O2 Delivery O2 Flow Rate FiO2 12/09/17 12:00 97.8 81 16 149/68 (95) 91 12/09/17 08:00 97.3 82 18 181/85 (117) 90 12/09/17 07:43 97 12/09/17 00:00 98.1 62 17 136/71 (92) 98 12/08/17 21:03 Nasal Cannula 2.00 12/08/17 20:33 Nasal Cannula 2.00 12/08/17 20:00 97.1 69 17 158/75 (102) 97 12/08/17 15:00 96.2 71 17 155/79 (104) 95 I/O 12/08/17 12/08/17 12/08/17 12/09/17 12/09/17 12/09/17 07:00 15:00 23:00 07:00 15:00 23:00 Intake Total 600 ml 700 ml 240 ml Output Total 1220 ml 2200 ml 750 ml Balance -620 ml -1500 ml -510 ml Intake Oral 600 ml 700 ml 240 ml Output Urine Total 1200 ml 2200 ml 750 ml Chest Tube Drainage Total 20 ml # Bowel Movements 1 1 3 Result Diagram: 12/06/17 0343 12/08/17 0600 Objective Remarks Objective Remarks GENERAL: 77-year-old male.alert and oriented. SKIN: Warm and dry. Multiple ecchymoses bilateral upper and lower extremities. HEAD: Atraumatic. Normocephalic. EYES: Pupils equal and round bilaterally and react. No scleral icterus. No injection or drainage. ENT: No nasal bleeding . Mucous membranes pink and moist. NECK: Trachea midline. CARDIOVASCULAR: Regular rate and rhythm. S1, S2. RESPIRATORY: On high flow O2, Breath sounds equal bilaterally. Scattered wheezes bilaterally. Occ Crackles at bases MUSCULOSKELETAL: Extremities without clubbing, cyanosis, but mild edema present. No obvious deformities. NEUROLOGICAL: Moves all limbs. O X 3, conversant. Assessment and Plan Assessment and Plan Plan A/P Assessment and Plan Left parieto-occipital punctate hemorrhage T5 inferior endplate fracture Resolving and Followed by Neurosurgery Hemorrhagic shock(resolved) Hypotension A. fib and on Argatroban. Resp: Acute respiratory failure Rib fractures -right 2, 3, 4, 5, 6, 7, 8 and left to Right hemothorax Posterior right lung contusion Superior mediastinal hematoma DVT with question of PE Albuterol/ipratropium aerosols every 6 hours with albuterol aerosols PRN every 2 hours. for Dyspnea Obtained lower extremity venous Doppler which was positive for DVT right common femoral vein. O2 at 4L and wean to keep sat >92 Right Pleural effusion /Pneumo. Rpt CXR plan: D/C Chest tube per Dr Logan Soft mechanical diet Pantoprazole for GI prophylaxis Endo: Hyperglycemia Sliding scale insulin to maintain euglycemia with Accu-Cheks every 6 hours Renal: Status post selective right renal artery angiogram embolization Acute kidney injury Monitor Urine output PT and OT Evaluation Sina Wills MD Dec 09, 2017 13:02
[2017-12-09 16:00] VITALS: BP 168/82; PULSE 83; RESP 18; TEMP 98; O2SAT 91
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
[2017-12-09 20:00] VITALS: BP 185/79; PULSE 63; RESP 18; TEMP 100.4; O2SAT 93
[2017-12-09] MEDS: REMOVE OLD LIDOCAINE PATCH T-DERMAL SCH (21:00)
[2017-12-10] VITALS (11 sets, daily range): BP systolic 120–134; BP diastolic 58–67; PULSE 50–86; RESP 15–20; TEMP 96.4–99.7; O2SAT 90–95
[2017-12-10] MEDS: RESP: ALBUTEROL 2.5 MG/IPRATROPIUM 0.5 MG NEB (SCH) INH ×5 (00:29→21:15)
[2017-12-10] MEDS: MAGNESIUM HYDROXIDE SUSP 30 ML CUP PO SCH ×2 (02:14→11:43)
[2017-12-10] MEDS: METHOCARBAMOL 500 MG TAB PO SCH ×3 (06:45→23:01)
[2017-12-10] MEDS: DOCUSATE SODIUM 50 MG/SENNA 8.6 MG TAB PO SCH ×2 (08:38→23:01)
[2017-12-10] MEDS: ARTIFICIAL TEARS OPTH SOLN 15 ML BTL EACH EYE SCH ×2 (08:38→11:43)
[2017-12-10] MEDS: LACTULOSE SYRUP 20 GM/30 ML CUP PO SCH (08:38)
[2017-12-10] MEDS: SODIUM CHLORIDE 0.9% FLUSH 10 ML FLUSH IV FLUSH SCH ×2 (08:57→23:13)
[2017-12-10] MEDS: APIXABAN 5 MG TABLET PO SCH ×2 (08:57→23:01)
[2017-12-10] MEDS: LIDOCAINE HCL 5% PATCH T-DERMAL SCH (08:57)
[2017-12-10] MEDS: FAMOTIDINE 20 MG TAB PO SCH ×2 (08:57→23:01)
--- NOTE | 2017-12-10 10:22 | RADRPT ---
EXAM DATE/TIME: 12/10/2017 09:34 [facility] COMPARISON: CHEST SINGLE AP, December 09, 2017, 11:26. INDICATIONS : Short of breath. MEDICAL HISTORY : Pneumothorax, right. SURGICAL HISTORY : Chest tube, right. ENCOUNTER: Subsequent ACUITY: 1 week PAIN SCORE: 0/10 LOCATION: Bilateral chest FINDINGS: Stable tiny right apical pneumothorax is noted. There has been no significant change in aeration with patchy bilateral infiltrates, primarily perihilar and basilar. Cardiac contours are grossly stable. CONCLUSION: No significant change Danny Bruce MD on December 10, 2017 at 10:18 Board Certified Radiologist. This report was verified electronically.
[2017-12-10] MEDS ORDERED: FUROSEMIDE 40 MG/4 ML VIAL IV PUSH ONE (11:30)
[2017-12-10] MEDS: oxyCODONE/ACETAMINOPHEN 10 MG/325 MG TAB PO PRN (13:32)
--- NOTE | 2017-12-10 15:42 | RADRPT ---
EXAM DATE/TIME: 12/10/2017 15:02 [facility] COMPARISON: CT THORAX W CONTRAST, November 25, 2017, 20:20. INDICATIONS : Pulmonary contusion, pneumothorax. RADIATION DOSE: 14.93 CTDIvol (mGy) MEDICAL HISTORY : Cardiovascular disease. Hypertension. Bladder cancer. SURGICAL HISTORY : None. ENCOUNTER: Initial ACUITY: 1 day PAIN SCALE: 0/10 LOCATION: chest TECHNIQUE: Volumetric scanning of the chest was performed. Using automated exposure control and adjustment of t he mA and/or kV according to patient size, radiation dose was kept as low as reasonably achievable to obtain optimal diagnostic quality images. DICOM format image data is available electronically for r eview and comparison. Follow-up recommendations for detected pulmonary nodules are based at a minimum on nodule size and pa tient risk factors according to Fleischner Society Guidelines. FINDINGS: Patchy air space disease is seen in both lung spaces. There is is small left pleural effusion. Ther e is 8 small right pneumothorax. Pleural thickening is seen along the right chest wall There is no axillary adenopathy. There is minimal nonspecific mediastinal adenopathy. Moderate LAD calcifications are noted. There is no pericardial effusion. CONCLUSION: Bibasilar consolidative changes with trace pneumothorax on the right prominent pleural rind along the right chest wall. Trace pleural effusion on the left.. Jarod Gibbons MD FACR on December 10, 2017 at 15:38 Board Certified Radiologist. This report was verified electronically.
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
[2017-12-10] MEDS: REMOVE OLD LIDOCAINE PATCH T-DERMAL SCH (21:00)
[2017-12-11] VITALS (17 sets, daily range): BP systolic 68–166; BP diastolic 50–87; PULSE 46–140; RESP 12–22; TEMP 97.4–99.5; O2SAT 89–97
[2017-12-11] MEDS: MAGNESIUM HYDROXIDE SUSP 30 ML CUP PO SCH ×2 (00:26→13:15)
[2017-12-11] MEDS: ONDANSETRON HCL 4 MG/2 ML VIAL IV PUSH PRN (03:06)
[2017-12-11] MEDS ORDERED: METOPROLOL TARTRATE 5 MG/5 ML VIAL IV PUSH ONE (03:15)
[2017-12-11] MEDS ORDERED: ASPIRIN 325 MG TAB PO ONE (03:15)
[2017-12-11] MEDS ORDERED: METOPROLOL TARTRATE 5 MG/5 ML VIAL IV PUSH SCH (03:18)
--- NOTE | 2017-12-11 03:21 | RADRPT ---
EXAM DATE/TIME: 12/11/2017 03:00 [place] COMPARISON: CT THORAX W/O CONTRAST, December 10, 2017, 15:02. CHEST SINGLE AP, December 10, 2017, 9:34. INDICATIONS : Respiratory distress. MEDICAL HISTORY : Pneumothorax, right. SURGICAL HISTORY : Chest tube, right. ENCOUNTER: Subsequent ACUITY: 1 week PAIN SCORE: Non-responsive. LOCATION: Bilateral chest FINDINGS: Patchy infiltrates in right mid and lower lung and consolidative infiltrates in the left mid and lowe r lung are similar radiographic compared to examination 12/10/17. The heart is stable in size. Multi ple right rib fractures stable in configuration. No pneumothorax seen. Tubing superimposes upon the upper lateral right chest. CONCLUSION: Stable severity to the bilateral mid and lower lung infiltrates when compared to the most recent [facility] t x-ray. Kodak Mark MD on December 11, 2017 at 3:15 Board Certified Radiologist. This report was verified electronically.
[2017-12-11] MEDS ORDERED: AMIODARONE INJ 150 MG in DEXTROSE 5% IN WATER 100ML INJ 100 ML IV ONE ×2 (03:26)
[2017-12-11] MEDS ORDERED: AMIODARONE HCL 150 MG/3 ML VIAL ONE (03:27)
[2017-12-11] MEDS ORDERED: AMIODARONE INJ 450 MG in DEXTROSE 5% IN WATE(EXCEL) INJ 241 ML IV PRN ×2 (03:36)
[2017-12-11] MEDS ORDERED: AMIODARONE INJ 450 MG in D5W (EXCEL BAG) INJ 241 ML IV PRN (03:45)
[2017-12-11] MEDS ORDERED: PHENYLEPHRINE HCL 10 MG/ML VIAL ONE (03:57)
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
[2017-12-11] MEDS ORDERED: FUROSEMIDE 40 MG/4 ML VIAL IV PUSH ONE (04:00)
[2017-12-11] MEDS ORDERED: MAGNESIUM SULFATE 1 GM PREMIX 100 ML IV ONE (04:00)
[2017-12-11] MEDS ORDERED: TERBUTALINE INJ 1 MG/ML AMP SQ PRN (04:00)
[2017-12-11 04:06] LABS: AUTOMATED NEUTROPHIL # 10.4 TH/MM3 (1.8-7.7); BASOPHIL % 0.1 % (0.0-2.0); EOSINOPHIL # 0.1 TH/MM3 (0-0.4); EOSINOPHIL % 1.2 % (0.0-4.0); HEMATOCRIT 28.9 % (39.0-51.0); HEMOGLOBIN 9.5 GM/DL (13.0-17.0); LYMPH % 3.1 % (9.0-44.0); LYMPHOCYTE # 0.4 TH/MM3 (1.0-4.8); MEAN CELL VOLUME 86.2 FL (80.0-100.0); MEAN CORPUSCULAR HEMOGLOBIN 28.2 PG (27.0-34.0); MEAN CORPUSCULAR HGB CONC 32.8 % (32.0-36.0); MEAN PLATELET VOLUME 9.8 FL (7.0-11.0); MONO % 5.6 % (0.0-8.0); MONOCYTE # 0.7 TH/MM3 (0-0.9); PLATELET COUNT 258 TH/MM3 (150-450); RED BLOOD COUNT 3.35 MIL/MM3 (4.50-5.90); WHITE BLOOD COUNT 11.6 TH/MM3 (4.0-11.0)
[2017-12-11 04:07] LABS: ALBUMIN 1.8 GM/DL (3.4-5.0); ALT (GPT) 34 U/L (12-78); AST (GOT) 32 U/L (15-37); BICARBONATE 30.5 MEQ/L (21.0-32.0); BLOOD UREA NITROGEN 39 MG/DL (7-18); CALCIUM 7.5 MG/DL (8.5-10.1); CHLORIDE 104 MEQ/L (98-107); CREATININE 1.91 MG/DL (0.60-1.30); GLOMERULAR FILTRATION RATE 34 ML/MIN (>89); GLUCOSE,RANDOM 128 MG/DL (74-106); SODIUM (NA) 143 MEQ/L (136-145)
[2017-12-11 04:11] LABS: ALKALINE PHOSPHATASE 97 U/L (45-117); TOTAL BILIRUBIN ADULT 1.2 MG/DL (0.2-1.0); TOTAL PROTEIN 5.7 GM/DL (6.4-8.2); TROPONIN I 0.07 NG/ML (0.02-0.05)
[2017-12-11] MEDS ORDERED: AMIODARONE INJ 450 MG in SODIUM CHLOR 0.9% (EXCEL) INJ 241 ML IV PRN (04:30)
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
[2017-12-11] MEDS: METHOCARBAMOL 500 MG TAB PO SCH ×3 (05:26→21:24)
[2017-12-11] MEDS: oxyCODONE/ACETAMINOPHEN 10 MG/325 MG TAB PO PRN (05:26)
[2017-12-11 06:23] LABS: BACTERIA, URINE RARE /hpf; BILIRUBIN, URINE NEG (NEG); BLOOD, URINE SMALL (NEG); GLUCOSE,URINE NEG (NEG); HYALINE CAST, URINE 1 /lpf (RARE); KETONE, URINE NEG (NEG); MUCUS URINE FEW /lpf (OCC); NITRITE,URINE NEG (NEG); PH, URINE 6.5 (5.0-8.5); URINE COLOR LIGHT-YELLOW (YELLW/STRAW); URINE LEUKOCYTE ESTERASE SMALL (NEG)
[2017-12-11] MEDS: RESP: ALBUTEROL 2.5 MG/IPRATROPIUM 0.5 MG NEB (SCH) INH ×3 (08:12→21:34)
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
[2017-12-11] MEDS: LIDOCAINE HCL 5% PATCH T-DERMAL SCH (08:18)
[2017-12-11] MEDS: DOCUSATE SODIUM 50 MG/SENNA 8.6 MG TAB PO SCH ×2 (08:19→21:24)
[2017-12-11] MEDS: FAMOTIDINE 20 MG TAB PO SCH ×2 (08:20→21:25)
[2017-12-11] MEDS: SODIUM CHLORIDE 0.9% FLUSH 10 ML FLUSH IV FLUSH SCH ×2 (09:00→21:26)
[2017-12-11] MEDS: APIXABAN 5 MG TABLET PO SCH ×2 (09:00→21:24)
[2017-12-11] MEDS ORDERED: fentaNYL 50 MCG/HR PATCH T-DERMAL SCH (11:00)
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
[2017-12-11] MEDS: PHENYLEPHRINE INJ 40 MG in DEXTROSE 5% IN WATE 500 ML INJ 496 ML IV PRN ×2 (12:45)
[2017-12-11 12:49] LABS: TROPONIN I 0.09 NG/ML (0.02-0.05)
--- NOTE | 2017-12-11 13:41 | EKG ---
Date Performed: 12/11/2017 Time Performed: 07:59:02 PTAGE: 77 years EKG: Probable atrial fibrillation or flutter with rapid response. Left bundle branch block ABNOR MAL ECG No significant change from prior electrocardiogram. PREVIOUS TRACING : 12/11/2017 02.36 DOCTOR: Bonifacio Matos Interpretating Date/Time 12/11/2017 13:26:40
--- NOTE | 2017-12-11 14:10 | EKG ---
Date Performed: 12/11/2017 Time Performed: 02:36:54 PTAGE: 77 years EKG: Atrial fibrillation with uncontrolled ventricular response Left bundle branch block Abnorma l ECG No significant change from prior electrocardiogram. PREVIOUS TRACING : 12/01/2017 07.00 DOCTOR: Bonifacio Matos Interpretating Date/Time 12/11/2017 14:10:08
[2017-12-11] MEDS ORDERED: HYDROmorphone HCL 2 MG TAB PO PRN (15:00)
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
[2017-12-11] MEDS ORDERED: CALCIUM CARBONATE 500 MG CHEWABLE TAB CHEW PRN (17:30)
[2017-12-11] MEDS: REMOVE OLD LIDOCAINE PATCH T-DERMAL SCH (21:00)
[2017-12-12] VITALS (16 sets, daily range): BP systolic 123–167; BP diastolic 59–78; PULSE 59–74; RESP 15–22; TEMP 97.7–98.9; O2SAT 92–99
[2017-12-12 00:21] LABS: TROPONIN I 0.07 NG/ML (0.02-0.05)
[2017-12-12] MEDS: MAGNESIUM HYDROXIDE SUSP 30 ML CUP PO SCH ×2 (01:15→14:09)
[2017-12-12 04:29] LABS: AUTOMATED NEUTROPHIL # 9.3 TH/MM3 (1.8-7.7); BASOPHIL % 0.3 % (0.0-2.0); EOSINOPHIL # 0.2 TH/MM3 (0-0.4); EOSINOPHIL % 2.1 % (0.0-4.0); HEMATOCRIT 27.4 % (39.0-51.0); HEMOGLOBIN 9.2 GM/DL (13.0-17.0); LYMPH % 4.7 % (9.0-44.0); LYMPHOCYTE # 0.5 TH/MM3 (1.0-4.8); MEAN CELL VOLUME 85.5 FL (80.0-100.0); MEAN CORPUSCULAR HEMOGLOBIN 28.7 PG (27.0-34.0); MEAN CORPUSCULAR HGB CONC 33.6 % (32.0-36.0); MEAN PLATELET VOLUME 9.3 FL (7.0-11.0); MONO % 6.8 % (0.0-8.0); MONOCYTE # 0.7 TH/MM3 (0-0.9); NEUT % 86.1 % (16.0-70.0); PLATELET COUNT 300 TH/MM3 (150-450); RED BLOOD COUNT 3.21 MIL/MM3 (4.50-5.90); RED CELL DISTRIBUTION WIDTH 16.7 % (11.6-17.2); WHITE BLOOD COUNT 10.8 TH/MM3 (4.0-11.0)
--- NOTE | 2017-12-12 04:47 | RADRPT ---
EXAM DATE/TIME: 12/12/2017 03:44 [place] COMPARISON: CT THORAX W/O CONTRAST, December 10, 2017, 15:02. CHEST SINGLE AP, December 11, 2017, 3:00. INDICATIONS : Follow up trauma, bibasilar consolidation and small right pneumothorax seen on CT.. MEDICAL HISTORY : Pneumothorax, right. SURGICAL HISTORY : Chest tube, right. ENCOUNTER: Subsequent ACUITY: 2 weeks PAIN SCORE: Non-responsive. LOCATION: Bilateral chest FINDINGS: A single AP semierect portable view the chest was obtained and again demonstrates bilateral airspace disease in the perihilar and bibasilar regions. Heart size is mildly prominent. Atherosclerotic heard es are noted in the aorta with prominent aortic knob. Overlying electrocardiogram leads are present. There is no visualized pneumothorax. Multiple right rib fractures are present. CONCLUSION: 1. Multiple right rib fractures with no visualized pneumothorax. 2. Abnormal opacity remains in the perihilar regions of both lung bases without significant change. Theo Locke MD on December 12, 2017 at 4:43 Board Certified Radiologist. This report was verified electronically.
[2017-12-12 05:08] LABS: ALBUMIN 1.8 GM/DL (3.4-5.0); BICARBONATE 30.4 MEQ/L (21.0-32.0); CALCIUM 7.4 MG/DL (8.5-10.1); CALCIUM-PROTEIN CORRECTED 8.2 MG/DL (8.5-10.1); CREATININE 1.7 MG/DL (0.60-1.30); TOTAL BILIRUBIN ADULT 0.8 MG/DL (0.2-1.0); TOTAL PROTEIN 5.6 GM/DL (6.4-8.2)
[2017-12-12] MEDS: PHENYLEPHRINE INJ 40 MG in DEXTROSE 5% IN WATE 500 ML INJ 496 ML IV PRN ×2 (05:16)
[2017-12-12] MEDS: METHOCARBAMOL 500 MG TAB PO SCH ×3 (06:51→21:21)
[2017-12-12] MEDS: RESP: ALBUTEROL 2.5 MG/IPRATROPIUM 0.5 MG NEB (SCH) INH ×3 (07:35→19:46)
[2017-12-12] MEDS: SODIUM CHLORIDE 0.9% FLUSH 10 ML FLUSH IV FLUSH SCH ×2 (09:10→21:23)
[2017-12-12] MEDS: APIXABAN 5 MG TABLET PO SCH ×2 (09:10→21:21)
[2017-12-12] MEDS: FAMOTIDINE 20 MG TAB PO SCH ×2 (09:10→21:21)
[2017-12-12] MEDS: DOCUSATE SODIUM 50 MG/SENNA 8.6 MG TAB PO SCH ×2 (09:10→21:21)
[2017-12-12] MEDS: OXYBUTYNIN CHLORIDE 5 MG TAB PO SCH (09:10)
[2017-12-12] MEDS: LIDOCAINE HCL 5% PATCH T-DERMAL SCH (09:37)
[2017-12-12] MEDS: AMIODARONE 200 MG TAB PO SCH ×2 (11:18→21:21)
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
[2017-12-12] MEDS: REMOVE OLD PATCH T-DERMAL SCH (21:00)
[2017-12-12] MEDS: REMOVE OLD LIDOCAINE PATCH T-DERMAL SCH (21:00)
[2017-12-12] MEDS: fentaNYL 50 MCG/HR PATCH T-DERMAL SCH (21:23)
[2017-12-13] VITALS (15 sets, daily range): BP systolic 97–159; BP diastolic 59–72; PULSE 64–137; RESP 14–25; TEMP 98.1–98.9; O2SAT 92–99
[2017-12-13] MEDS: MAGNESIUM HYDROXIDE SUSP 30 ML CUP PO SCH ×2 (01:15→13:15)
[2017-12-13] MEDS: oxyCODONE/ACETAMINOPHEN 5 MG/325 MG TAB PO PRN ×2 (01:50→06:00)
[2017-12-13] MEDS: METHOCARBAMOL 500 MG TAB PO SCH ×3 (06:00→21:25)
[2017-12-13] MEDS: RESP: ALBUTEROL 2.5 MG/IPRATROPIUM 0.5 MG NEB (SCH) INH ×3 (08:51→19:56)
[2017-12-13] MEDS: AMIODARONE 200 MG TAB PO SCH ×2 (09:02→21:25)
[2017-12-13] MEDS: FAMOTIDINE 20 MG TAB PO SCH ×2 (09:02→21:25)
[2017-12-13] MEDS: APIXABAN 5 MG TABLET PO SCH ×2 (09:02→21:25)
[2017-12-13] MEDS: SODIUM CHLORIDE 0.9% FLUSH 10 ML FLUSH IV FLUSH SCH ×2 (09:02→21:25)
[2017-12-13] MEDS: OXYBUTYNIN CHLORIDE 5 MG TAB PO SCH (09:02)
[2017-12-13] MEDS: DOCUSATE SODIUM 50 MG/SENNA 8.6 MG TAB PO SCH ×2 (09:03→21:25)
[2017-12-13] MEDS: LIDOCAINE HCL 5% PATCH T-DERMAL SCH (09:03)
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
[2017-12-13] MEDS ORDERED: AMIODARONE INJ 150 MG in DEXTROSE 5% IN WATER 100ML INJ 100 ML IV ONE ×2 (14:00)
[2017-12-13] MEDS: oxyCODONE/ACETAMINOPHEN 10 MG/325 MG TAB PO PRN (17:13)
[2017-12-13] MEDS: REMOVE OLD LIDOCAINE PATCH T-DERMAL SCH (21:00)
[2017-12-14] VITALS (13 sets, daily range): BP systolic 89–130; BP diastolic 52–71; PULSE 62–81; RESP 15–18; TEMP 97.2–98.4; O2SAT 92–98
[2017-12-14] MEDS: MAGNESIUM HYDROXIDE SUSP 30 ML CUP PO SCH ×2 (00:32→14:13)
[2017-12-14] MEDS: METHOCARBAMOL 500 MG TAB PO SCH ×3 (06:14→20:48)
[2017-12-14] MEDS: RESP: ALBUTEROL 2.5 MG/IPRATROPIUM 0.5 MG NEB (SCH) INH ×2 (07:28→11:52)
[2017-12-14] MEDS: APIXABAN 5 MG TABLET PO SCH ×2 (08:10→20:49)
[2017-12-14] MEDS: FAMOTIDINE 20 MG TAB PO SCH ×2 (08:10→20:50)
[2017-12-14] MEDS: OXYBUTYNIN CHLORIDE 5 MG TAB PO SCH (08:10)
[2017-12-14] MEDS: AMIODARONE 200 MG TAB PO SCH ×2 (08:10→20:50)
[2017-12-14] MEDS: SODIUM CHLORIDE 0.9% FLUSH 10 ML FLUSH IV FLUSH SCH ×2 (08:10→20:54)
[2017-12-14] MEDS: DOCUSATE SODIUM 50 MG/SENNA 8.6 MG TAB PO SCH ×2 (08:10→20:50)
[2017-12-14] MEDS: LIDOCAINE HCL 5% PATCH T-DERMAL SCH (08:10)
[2017-12-14] MEDS: REMOVE OLD DURAGESIC (FENTANYL) PATCH T-DERMAL SCH (11:00)
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
[2017-12-14] MEDS: SULFAMETHOXAZOLE-TRIMETHOPRIM DS 800-160 MG TAB PO SCH ×2 (14:13→20:51)
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
[2017-12-14 15:52] LABS: BICARBONATE 29.6 MEQ/L (21.0-32.0); CALCIUM 7.7 MG/DL (8.5-10.1); CREATININE 1.84 MG/DL (0.60-1.30); MAGNESIUM 2.5 MG/DL (1.5-2.5)
[2017-12-14] MEDS: METOPROLOL TARTRATE 25 MG TAB PO SCH (20:49)
[2017-12-14] MEDS: oxyCODONE/ACETAMINOPHEN 10 MG/325 MG TAB PO PRN (20:50)
[2017-12-14] MEDS: REMOVE OLD LIDOCAINE PATCH T-DERMAL SCH (20:54)
[2017-12-15] VITALS (17 sets, daily range): BP systolic 82–129; BP diastolic 58–71; PULSE 49–129; RESP 18–20; TEMP 97–98.2; O2SAT 93–98
[2017-12-15] MEDS: MAGNESIUM HYDROXIDE SUSP 30 ML CUP PO SCH ×2 (01:15→11:55)
[2017-12-15] MEDS ORDERED: DIGOXIN 0.5 MG/2 ML VIAL IVS ONE (03:57)
[2017-12-15] MEDS ORDERED: SODIUM CHLORID 0.9% 500 ML INJ 500 ML IV ONE ×2 (04:00→08:30)
[2017-12-15] MEDS: METHOCARBAMOL 500 MG TAB PO SCH ×3 (06:14→21:57)
[2017-12-15] MEDS: METOPROLOL TARTRATE 25 MG TAB PO SCH (07:59)
[2017-12-15] MEDS: APIXABAN 5 MG TABLET PO SCH ×2 (08:01→20:16)
[2017-12-15] MEDS: SULFAMETHOXAZOLE-TRIMETHOPRIM DS 800-160 MG TAB PO SCH ×2 (08:01→20:15)
[2017-12-15] MEDS: AMIODARONE 200 MG TAB PO SCH ×2 (08:01→20:16)
[2017-12-15] MEDS: DOCUSATE SODIUM 50 MG/SENNA 8.6 MG TAB PO SCH ×2 (08:01→20:16)
[2017-12-15] MEDS: OXYBUTYNIN CHLORIDE 5 MG TAB PO SCH (08:01)
[2017-12-15] MEDS: FAMOTIDINE 20 MG TAB PO SCH ×2 (08:01→20:16)
[2017-12-15] MEDS: LIDOCAINE HCL 5% PATCH T-DERMAL SCH (08:05)
[2017-12-15] MEDS: SODIUM CHLORIDE 0.9% FLUSH 10 ML FLUSH IV FLUSH SCH ×2 (08:06→20:15)
[2017-12-15] MEDS ORDERED: DIGOXIN 0.5 MG/2 ML VIAL IVS SCH (10:00)
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
[2017-12-15 13:52] LABS: AUTOMATED NEUTROPHIL # 6.8 TH/MM3 (1.8-7.7); BASOPHIL # 0.1 TH/MM3 (0-0.2); EOSINOPHIL # 0.1 TH/MM3 (0-0.4); EOSINOPHIL % 1.7 % (0.0-4.0); HEMATOCRIT 27.7 % (39.0-51.0); LYMPH % 4.5 % (9.0-44.0); LYMPHOCYTE # 0.3 TH/MM3 (1.0-4.8); MEAN CELL VOLUME 84.9 FL (80.0-100.0); MEAN CORPUSCULAR HEMOGLOBIN 27.7 PG (27.0-34.0); MEAN CORPUSCULAR HGB CONC 32.6 % (32.0-36.0); MEAN PLATELET VOLUME 9.3 FL (7.0-11.0); MONOCYTE # 0.4 TH/MM3 (0-0.9); NEUT % 87.8 % (16.0-70.0); PLATELET COUNT 255 TH/MM3 (150-450); RED BLOOD COUNT 3.26 MIL/MM3 (4.50-5.90); RED CELL DISTRIBUTION WIDTH 16.6 % (11.6-17.2); WHITE BLOOD COUNT 7.7 TH/MM3 (4.0-11.0)
[2017-12-15 14:10] LABS: ALBUMIN 1.8 GM/DL (3.4-5.0); ALT (GPT) 38 U/L (12-78); AST (GOT) 30 U/L (15-37); BLOOD UREA NITROGEN 36 MG/DL (7-18); CALCIUM 7.5 MG/DL (8.5-10.1); CHLORIDE 103 MEQ/L (98-107); CREATININE 1.75 MG/DL (0.60-1.30); GLOMERULAR FILTRATION RATE 38 ML/MIN (>89); GLUCOSE,RANDOM 117 MG/DL (74-106); MAGNESIUM 2.3 MG/DL (1.5-2.5); PHOSPHORUS 2.9 MG/DL (2.5-4.9); SODIUM (NA) 139 MEQ/L (136-145)
[2017-12-15 14:13] LABS: ALKALINE PHOSPHATASE 196 U/L (45-117); TOTAL BILIRUBIN ADULT 0.8 MG/DL (0.2-1.0); TOTAL PROTEIN 5.9 GM/DL (6.4-8.2)
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
--- NOTE | 2017-12-15 18:24 | HHI.PR ---
Subjective Remarks Up in a Chair and on O2 at 2 L.Feels better. Chest tube is out. less leg edema. C/O swelling of scrotum. Objective Vital Signs Date Time Temp Pulse Resp B/P (MAP) Pulse Ox O2 Delivery O2 Flow Rate FiO2 12/15/17 18:12 Nasal Cannula 2.00 12/15/17 16:31 Nasal Cannula 2.00 12/15/17 16:31 98.2 66 18 121/67 (85) 96 12/15/17 13:55 Nasal Cannula 3.00 12/15/17 12:00 72 112/62 (79) 12/15/17 11:56 98.0 63 18 111/58 (75) 94 12/15/17 08:42 93 Nasal Cannula 3.00 12/15/17 08:08 Nasal Cannula 3.00 12/15/17 07:41 106 93/66 (75) 12/15/17 07:38 119 88/63 (71) 12/15/17 06:16 109 97/61 (73) 97 12/15/17 04:55 125 90/64 (73) 95 12/15/17 04:00 127 85/58 (67) 96 12/15/17 04:00 98.1 49 20 82/63 (69) 95 12/15/17 03:45 129 82/63 (69) 94 12/15/17 03:00 96 Nasal Cannula 3.00 12/15/17 00:50 98 BiPAP 45 12/15/17 00:50 98 45 12/15/17 00:00 97.0 65 18 119/66 (83) 95 12/14/17 21:25 94 Nasal Cannula 3.00 12/14/17 20:00 98.1 65 18 113/63 (80) 94 12/14/17 19:30 Nasal Cannula 3.00 I/O 12/14/17 12/14/17 12/14/17 12/15/17 12/15/17 12/15/17 07:00 15:00 23:00 07:00 15:00 23:00 Intake Total 480 ml 1240 ml Output Total 800 ml 1000 ml 600 ml Balance -320 ml -1000 ml 640 ml Intake Oral 480 ml 240 ml IV Total 1000 ml Output Urine Total 800 ml 1000 ml 600 ml # Bowel Movements 1 Result Diagram: 12/15/17 1320 12/15/17 1320 Objective Remarks Objective Remarks GENERAL: 77-year-old male.alert and oriented. SKIN: Warm and dry. HEAD: Atraumatic. Normocephalic. EYES: Pupils equal and round bilaterally and react. No scleral icterus. No injection or drainage. ENT: No nasal bleeding . Mucous membranes pink and moist. NECK: Trachea midline. CARDIOVASCULAR: Regular rate and rhythm. S1, S2. RESPIRATORY: Breath sounds equal bilaterally. Scattered wheezes bilaterally. No Crackles at bases MUSCULOSKELETAL: Extremities without clubbing, cyanosis, but mild edema present. No obvious deformities. NEUROLOGICAL: Moves all limbs. O X 3, conversant. Assessment and Plan Assessment and Plan Plan A/P Assessment and Plan Left parieto-occipital punctate hemorrhage resolving T5 inferior endplate fracture Hemorrhagic shock(resolved) A. fib and on Argatroban. Resp: Acute respiratory failure Resolved Rib fractures -right 2, 3, 4, 5, 6, 7, 8 and left to Right hemothorax Posterior right lung contusion, resolving Superior mediastinal hematoma DVT with question of PE Albuterol/ipratropium aerosols every 6 hours with albuterol aerosols PRN every 2 hours. for Dyspnea Wean O2 to keep sat >92 Right Pleural effusion /Pneumo. Improved Rpt CXR Soft mechanical diet Pantoprazole for GI prophylaxis Renal: Status post selective right renal artery angiogram embolization Acute kidney injury resolved PT and OT Evaluation Sina Wills MD Dec 15, 2017 18:24
--- NOTE | 2017-12-15 19:38 | RADRPT ---
EXAM DATE/TIME: 12/15/2017 18:30 [facility] COMPARISON: CHEST SINGLE AP, December 12, 2017, 3:44. INDICATIONS : Pleural effusion. MEDICAL HISTORY : Pneumothorax, right. SURGICAL HISTORY : Chest tube, right. ENCOUNTER: Subsequent ACUITY: 3 weeks PAIN SCORE: 0/10 LOCATION: Bilateral chest FINDINGS: Multiple right rib fractures. Small bilateral pleural effusions with bilateral mostly basilar airspac e disease. Tortuous aorta. Heart size enlarged. CONCLUSION: 1. Right rib fractures. No pneumothorax. Basilar airspace disease with small effusions. Helio Kumari MD on December 15, 2017 at 19:34 Board Certified Radiologist. This report was verified electronically.
[2017-12-15] MEDS: oxyCODONE/ACETAMINOPHEN 5 MG/325 MG TAB PO PRN (20:17)
[2017-12-15] MEDS: REMOVE OLD PATCH T-DERMAL SCH (20:20)
[2017-12-15] MEDS: REMOVE OLD LIDOCAINE PATCH T-DERMAL SCH (20:20)
[2017-12-15] MEDS: fentaNYL 50 MCG/HR PATCH T-DERMAL SCH (21:57)
[2017-12-16] VITALS (8 sets, daily range): BP systolic 140–153; BP diastolic 66–81; PULSE 56–61; RESP 16–19; TEMP 96.9–98.7; O2SAT 94–98
--- NOTE | 2017-12-16 00:01 | EKG ---
Date Performed: 12/15/2017 Time Performed: 11:37:59 PTAGE: 77 years EKG: SINUS BRADYCARDIA WITH FIRST DEGREE AV BLOCK MODERATE INTRAVENTRICULAR CONDUCTION DELAY NON SPECIFIC T-WAVE ABNORMALITY ABNORMAL ECG PREVIOUS TRACING : 12/11/2017 07.59 DOCTOR: Lj Valdez Interpretating Date/Time 12/15/2017 23:57:28
[2017-12-16] MEDS: MAGNESIUM HYDROXIDE SUSP 30 ML CUP PO SCH ×3 (01:15→15:10)
[2017-12-16] MEDS: METHOCARBAMOL 500 MG TAB PO SCH ×3 (06:10→22:30)
[2017-12-16] MEDS: oxyCODONE/ACETAMINOPHEN 5 MG/325 MG TAB PO PRN (06:11)
[2017-12-16 06:26] LABS: BICARBONATE 27.5 MEQ/L (21.0-32.0); CALCIUM 7.6 MG/DL (8.5-10.1); CREATININE 1.71 MG/DL (0.60-1.30)
[2017-12-16] MEDS: FAMOTIDINE 20 MG TAB PO SCH ×2 (08:34→22:30)
[2017-12-16] MEDS: APIXABAN 5 MG TABLET PO SCH ×2 (08:34→22:30)
[2017-12-16] MEDS: DOCUSATE SODIUM 50 MG/SENNA 8.6 MG TAB PO SCH ×2 (08:35→21:00)
[2017-12-16] MEDS: OXYBUTYNIN CHLORIDE 5 MG TAB PO SCH (08:35)
[2017-12-16] MEDS: SODIUM CHLORIDE 0.9% FLUSH 10 ML FLUSH IV FLUSH SCH ×2 (08:35→22:35)
[2017-12-16] MEDS: SULFAMETHOXAZOLE-TRIMETHOPRIM DS 800-160 MG TAB PO SCH (08:35)
[2017-12-16] MEDS: AMIODARONE 200 MG TAB PO SCH ×2 (08:35→22:29)
[2017-12-16] MEDS: LIDOCAINE HCL 5% PATCH T-DERMAL SCH (08:35)
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
[2017-12-16] MEDS: REMOVE OLD LIDOCAINE PATCH T-DERMAL SCH (21:00)
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
[2017-12-16] MEDS: METOPROLOL TARTRATE 25 MG TAB PO SCH (22:29)
[2017-12-16] MEDS: oxyCODONE/ACETAMINOPHEN 10 MG/325 MG TAB PO PRN (22:30)
[2017-12-17 00:20] VITALS: BP 159/77; PULSE 61; RESP 17; TEMP 97.7; O2SAT 95
[2017-12-17] MEDS: MAGNESIUM HYDROXIDE SUSP 30 ML CUP PO SCH ×2 (01:15→13:15)
[2017-12-17 04:40] VITALS: BP 136/77; PULSE 54; RESP 18; TEMP 97.6; O2SAT 94
[2017-12-17 08:00] VITALS: BP 139/72; PULSE 56; RESP 16; TEMP 97.3; O2SAT 95
[2017-12-17] MEDS: METHOCARBAMOL 500 MG TAB PO SCH ×2 (08:00→15:17)
[2017-12-17] MEDS ORDERED: SULFAMETHOXAZOLE-TRIMETHOPRIM DS 800-160 MG TAB PO SCH (09:00)
[2017-12-17] MEDS: SODIUM CHLORIDE 0.9% FLUSH 10 ML FLUSH IV FLUSH SCH (09:00)
[2017-12-17] MEDS: FAMOTIDINE 20 MG TAB PO SCH (09:07)
[2017-12-17] MEDS: OXYBUTYNIN CHLORIDE 5 MG TAB PO SCH (09:08)
[2017-12-17] MEDS: AMIODARONE 200 MG TAB PO SCH (09:08)
[2017-12-17] MEDS: APIXABAN 5 MG TABLET PO SCH (09:08)
[2017-12-17] MEDS: DOCUSATE SODIUM 50 MG/SENNA 8.6 MG TAB PO SCH (09:09)
[2017-12-17] MEDS: METOPROLOL TARTRATE 25 MG TAB PO SCH (09:09)
[2017-12-17] MEDS: LIDOCAINE HCL 5% PATCH T-DERMAL SCH (09:09)
[2017-12-17] MEDS: REMOVE OLD DURAGESIC (FENTANYL) PATCH T-DERMAL SCH (11:00)
[2017-12-17 12:32] VITALS: BP 129/62; PULSE 59; RESP 18; TEMP 98; O2SAT 95
[2017-12-17] MEDS ORDERED: FAMO20TA2 PO (14:19)
[2017-12-17] MEDS ORDERED: SULF1TAB23 PO (14:19)
[2017-12-17] MEDS ORDERED: MAGN30S PO (14:19)
[2017-12-17] MEDS ORDERED: AMIO200T PO (14:19)
[2017-12-17] MEDS ORDERED: METO25TA3 PO (14:19)
[2017-12-17] MEDS ORDERED: OXYB5TAB8 PO (14:19)
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
[2017-12-17 16:15] VITALS: BP 138/67; PULSE 57; RESP 17; TEMP 98.3; O2SAT 95
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
== END 2017-12-17 16:36 | DRG 957 ==
LOC: NEPI 20:02 → EDBD 20:36 → NEDA 20:36 → N03A 11-26 00:10 → N07A 12-06 14:45 → N03A 12-11 03:20 → N06B 12-14 16:53
PROVIDERS: ADMIT Surgery; ATTEND Surgery
PROC: 04L93DZ Occlusion of Right Renal Artery with Intraluminal Device, Percutaneous Approach (ICD-10-PCS; principal; 2017-11-25)
PROC: 5A1945Z Respiratory Ventilation, 24-96 Consecutive Hours (ICD-10-PCS; 2017-11-25)
PROC: B4181ZZ Fluoroscopy of Bilateral Renal Arteries using Low Osmolar Contrast (ICD-10-PCS; 2017-11-25)
PROC: B4101ZZ Fluoroscopy of Abdominal Aorta using Low Osmolar Contrast (ICD-10-PCS; 2017-11-25)
PROC: 02HV33Z Insertion of Infusion Device into Superior Vena Cava, Percutaneous Approach (ICD-10-PCS; 2017-11-25)
PROC: 03HY32Z Insertion of Monitoring Device into Upper Artery, Percutaneous Approach (ICD-10-PCS; 2017-11-25)
PROC: 0BH17EZ Insertion of Endotracheal Airway into Trachea, Via Natural or Artificial Opening (ICD-10-PCS; 2017-11-25)
PROC: 30233N1 Transfusion of Nonautologous Red Blood Cells into Peripheral Vein, Percutaneous Approach (ICD-10-PCS; 2017-11-25)
PROC: 3E1F88Z Irrigation of Respiratory Tract using Irrigating Substance, Via Natural or Artificial Opening Endoscopic (ICD-10-PCS; 2017-11-26)
PROC: 0W9930Z Drainage of Right Pleural Cavity with Drainage Device, Percutaneous Approach (ICD-10-PCS; 2017-11-26)
PROC: 30233K1 Transfusion of Nonautologous Frozen Plasma into Peripheral Vein, Percutaneous Approach (ICD-10-PCS; 2017-11-26)
DX: S37.031A Laceration of right kidney, unspecified degree, initial encounter (principal); K66.1 Hemoperitoneum; S27.322A Contusion of lung, bilateral, initial encounter; S22.5XXA Flail chest, initial encounter for closed fracture; S06.891A Other specified intracranial injury with loss of consciousness of 30 minutes or less, initial encounter; T79.4XXA Traumatic shock, initial encounter; J96.01 Acute respiratory failure with hypoxia; N17.9 Acute kidney failure, unspecified; S22.059A Unspecified fracture of T5-T6 vertebra, initial encounter for closed fracture; S27.1XXA Traumatic hemothorax, initial encounter; N18.3 Chronic kidney disease, stage 3 (moderate); J90 Pleural effusion, not elsewhere classified; S32.10XA Unspecified fracture of sacrum, initial encounter for closed fracture; I82.411 Acute embolism and thrombosis of right femoral vein; D62 Acute posthemorrhagic anemia; N39.0 Urinary tract infection, site not specified; S27.892A Contusion of other specified intrathoracic organs, initial encounter; J98.11 Atelectasis; E87.2 Acidosis; I82.491 Acute embolism and thrombosis of other specified deep vein of right lower extremity; J44.9 Chronic obstructive pulmonary disease, unspecified; I12.9 Hypertensive chronic kidney disease with stage 1 through stage 4 chronic kidney disease, or unspecified chronic kidney disease; R40.2431 Glasgow coma scale score 3-8, in the field [EMT or ambulance]; E27.9 Disorder of adrenal gland, unspecified; R73.9 Hyperglycemia, unspecified; D69.6 Thrombocytopenia, unspecified; S30.22XA Contusion of scrotum and testes, initial encounter; E83.51 Hypocalcemia; I27.20 Pulmonary hypertension, unspecified; E88.09 Other disorders of plasma-protein metabolism, not elsewhere classified; N50.89 Other specified disorders of the male genital organs; R00.1 Bradycardia, unspecified; N48.89 Other specified disorders of penis; I48.0 Paroxysmal atrial fibrillation; R00.0 Tachycardia, unspecified; E87.70 Fluid overload, unspecified; Z87.891 Personal history of nicotine dependence; Y92.410 Unspecified street and highway as the place of occurrence of the external cause; V03.10XA Pedestrian on foot injured in collision with car, pick-up truck or van in traffic accident, initial encounter
CPT/HCPCS: 31500; 36253; 36430; 36556; 36600; 37243; 43752; 51702; 61210; 70450; 70487; 71045; 71250; 71260; 72125; 72129; 72132; 72170; 74177; 76937; 80048; 80053; 80307; 81001; 82272; 82550; 82570; 82805; 82948; 83735; 83880; 84100; 84132; 84155; 84300; 84484; 85007; 85014; 85018; 85025; 85027; 85384; 85610; 85730; 86022; 86850; 86900; 86901; 86920; 86927; 87077; 87086; 87186; 87641; 90471; 90715; 93005; 93306; 93970; 94002; 94003; 94060; 94150; 94640; 94664; 94667; 94668; 95819; 96361; 96374; 96375; 99291; C9113; G0390; J0153; J0282; J0360; J0690; J0883; J1160; J1644; J1650; J1940; J2250; J2270; J2370; J2405; J2920; J3010; J3475; J3480; J7030; J7040; J7050; J7060; J7613; P9016; P9017; Q9967